=== PATIENT | female | born 1960 | race Caucasian/White ===

== ENCOUNTER 2016-10-08 15:10 | Emergency (ER) | payer OTHER | END 2016-10-08 16:40 | disposition left against medical advice (07) | DX: R07.89 Other chest pain (principal); Z53.21 Procedure and treatment not carried out due to patient leaving prior to being seen by health care provider ==

== ENCOUNTER 2017-04-06 17:33 | Emergency (ER) | payer OTHER ==
[2017-04-06 18:15] LABS: BASOPHILS # (AUTO) 0.2 10^3/uL (0.0-0.1); BASOPHILS % (AUTO) 1.9 %; EOSINOPHILS # (AUTO) 0.1 10^3/uL (0.0-0.7); EOSINOPHILS % (AUTO) 1.7 %; HCT - HEMATOCRIT 41.5 % (37.0-47.0); HGB - HEMOGLOBIN 14.3 g/dL (12.0-16.0); LYMPHOCYTES % (AUTO) 38.3 %; MEAN CORPUSCULAR HEMOGLOBIN 31.3 pg (27.0-31.0); MEAN CORPUSCULAR HGB CONC 34.4 g/dL (32.0-36.0); MEAN CORPUSCULAR VOLUME 90.8 fL (81.0-99.0); MEAN PLATELET VOLUME 8.8 fL (7.9-10.8); MONOCYTES % (AUTO) 12.7 %; NEUTROPHILS # (AUTO) 3.6 10^3/uL (1.5-6.6); NEUTROPHILS % (AUTO) 45.4 %; RED BLOOD COUNT 4.57 10^6/uL (4.20-5.40); RED CELL DISTRIBUTION WIDTH 12.9 % (12.0-15.0); UNCORRECTED WHITE BLOOD COUNT 7.9 x10^3/uL; WHITE BLOOD COUNT 7.9 x10^3/uL (4.8-10.8)
[2017-04-06 18:36] LABS: ALBUMIN/GLOBULIN RATIO 1.4 (1.0-2.2); BILIRUBIN,TOTAL 0.6 mg/dL (0.2-1.0); CALCIUM 8.9 mg/dL (8.5-10.3); CREATININE 0.6 mg/dL (0.4-1.0); POTASSIUM 3.2 mmol/L (3.5-5.0); TOTAL PROTEIN 7.3 g/dL (6.7-8.2)
--- NOTE | 2017-04-06 18:38 | ED Physician Documentation ---
PD HPI CHEST PAIN - Stated complaint Stated Complaint: SOA/CP - Chief complaint Chief Complaint: Cardiac - History obtained from History obtained from: Patient - History of Present Illness Timing - onset: How many hours ago (several), Today Timing - onset during: Rest Timing - duration: Hours Timing - details: Abrupt onset, Still present, Waxing and waning Quality: Tightness, Aching Location: Substernal Radiation: Neck Improved by: No: Rest, Nitro Worsened by: No: Exertion, Inspiration, Movement, Palpation Associated symptoms: Shortness of air. No: Diaphoresis, Nausea, Vomiting, Feeling faint / dizzy, Palpitations, Cough Similar symptoms before: No diagnosis (has had similar episodes several times. Has seen PMD and given NTG PRN pending workup. She has stress nuclear test yesterday and will see Cardio for result this coming week. Also getting ECHO this coming Saturday. The NTG earlier did not help.) Recently seen: Clinic (2 days ago with nuclear stress test and will have ECHO this coming Saturday as evaluation of the episodic chest pain episodes.) Review of Systems Ten Systems: 10 systems reviewed and negative Constitutional: denies: Fever, Chills Nose: denies: Rhinorrhea / runny nose, Congestion Throat: denies: Sore throat Cardiac: reports: Chest pain / pressure. denies: Palpitations, Pedal edema, Calf pain Respiratory: reports: Dyspnea. denies: Cough, Wheezing GI: denies: Nausea, Vomiting, Diarrhea : denies: Dysuria, Frequency Skin: denies: Rash, Lesions Musculoskeletal: denies: Neck pain, Back pain Neurologic: denies: Generalized weakness, Focal weakness, Numbness, Near syncope Psychiatric: reports: Anxiety. 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 - Present Medications Home Medications: Ambulatory Orders Medication Instructions Recorded Confirmed Atorvastatin Calcium 80 mg PO DAILY 10/08/16 04/06/17 Escitalopram Oxalate 20 mg PO DAILY 10/08/16 04/06/17 Exenatide [Byetta] 10 mg SQ BID 10/08/16 04/06/17 Insulin Glargine,Hum.rec.anlog 5 units SQ DAILY PM 10/08/16 04/06/17 [Basaglar Kwikpen U-100] Levothyroxine Sodium 50 mcg PO DAILY 10/08/16 04/06/17 Metformin HCl 1,000 mg PO BID 10/08/16 04/06/17 Trazodone HCl 150 mg PO DAILY 10/08/16 04/06/17 - Allergies Allergies/Adverse Reactions: Allergies Allergy/AdvReac Type Severity Reaction Status Date / Time gabapentin Allergy Unknown Verified 04/06/17 17:49 naproxen Allergy Unknown Verified 04/06/17 17:49 oxycodone Allergy Unknown Verified 04/06/17 17:49 Sulfa (Sulfonamide Allergy Unknown Verified 04/06/17 17:49 Antibiotics) - Social History Does the pt smoke?: No Smoking Status: Never smoker Does the pt drink ETOH?: Yes - Immunizations Immunizations are current?: Yes PD ED PE NORMAL - Vitals Vital signs reviewed: Yes - General General: Alert and oriented X 3, No acute distress, Well developed/nourished - HEENT HEENT: Ears normal, Moist mucous membranes, Pharynx benign - Neck Neck: Supple, no meningeal sign, No adenopathy - Cardiac Cardiac: RRR, No murmur - Respiratory Respiratory: No respiratory distress, Clear bilaterally - Abdomen Abdomen: Soft, Non tender - Back Back: No CVA TTP - Derm Derm: Normal color, Warm and dry - Extremities Extremities: No tenderness to palpate, Normal ROM s pain, No edema, No calf tenderness / cord - Neuro Neuro: Alert and oriented X 3, 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 No: ST elevation c/w ischemia, ST depression - Labs Labs: Laboratory Tests 04/06/17 04/06/17 04/06/17 17:55 18:11 18:19 WBC 7.9 RBC 4.57 Hgb 14.3 Hct 41.5 MCV 90.8 MCH 31.3 H MCHC 34.4 RDW 12.9 Plt Count 218 MPV 8.8 Neut # 3.6 Lymph # 3.0 [place] # 1.0 Eos # 0.1 Baso # 0.2 H Absolute Nucleated RBC 0.00 Nucleated RBC % 0.0 Sodium 132 L Potassium 3.2 L Chloride 99 L Carbon Dioxide 15 L Anion Gap 18.0 H BUN 10 Creatinine 0.6 Estimated GFR (MDRD) 104 Glucose 441 H POC Whole Bld Glucose 443 H Calcium 8.9 Total Bilirubin 0.6 AST 33 ALT 58 Alkaline Phosphatase 112 Troponin I Total Protein 7.3 Albumin 4.2 Globulin 3.1 Albumin/Globulin Ratio 1.4 Lipase 43 04/06/17 19:14 WBC RBC Hgb Hct MCV MCH MCHC RDW Plt Count MPV Neut # Lymph # [place] # Eos # Baso # Absolute Nucleated RBC Nucleated RBC % Sodium Potassium Chloride Carbon Dioxide Anion Gap BUN Creatinine Estimated GFR (MDRD) Glucose POC Whole Bld Glucose Calcium Total Bilirubin AST ALT Alkaline Phosphatase Troponin I < 0.04 Total Protein Albumin Globulin Albumin/Globulin Ratio Lipase - Rads (name of study) chest Radiology: Prelim report reviewed, EMP read contemporaneously (normal chest xray ) PD MEDICAL DECISION MAKING - ED course Complexity details: reviewed results, re-evaluated patient (no change with GI cocktail. negative ECG and Trop after hours of pain, with similar self-limited episodes recent past. Getting Cardiac workup, with nuclear stress yesterday but no results as yet. ), considered differential, d/w patient Departure - Departure Disposition: 01 Home, Self Care Clinical Impression: Chest pain Qualifiers: Chest pain type: precordial pain Qualified Code(s): R07.2 - Precordial pain Migraine Qualifiers: Migraine type: without aura Status migrainosus presence: without status migrainosus Intractability: not intractable Qualified Code(s): G43.009 - Migraine without aura, not intractable, without status migrainosus Condition: Stable Record reviewed to determine appropriate education?: Yes Instructions: ED Chest Pain Atypical Unkn Cause Comments: Tylenol or ibuprofen if needed for the pains when they occur. Follow-up with the truck driver's offsider regarding the stress test results this coming week and also have the echocardiogram this coming Saturday as planned. Return if more consistent pains or other concerns. Drink lots of fluids. There is not any sign of heart attack or obvious heart failure or fluid in the lungs or such at this time. Discharge Date/Time: 04/06/17 21:02
[2017-04-06] MEDS ORDERED: MAG HYDROX/AL HYDROX/SIMETH 30 ML UDC PO STA (19:03)
[2017-04-06] MEDS ORDERED: LIDOCAINE VISCOUS 2% 15 ML UDC MM STA (19:03)
[2017-04-06] MEDS ORDERED: MAG HYDROX/AL HYDROX/SIMETH 30 ML UDC ONE (19:18)
[2017-04-06] MEDS ORDERED: LIDOCAINE VISCOUS 2% 15 ML UDC MM ONE (19:18)
--- NOTE | 2017-04-06 20:27 | XRAY Preliminary Report ---
Exam: XR CHEST 2 VIEW PA/LAT IMPRESSION: Normal 2-view chest radiography. [facility] SITE ID: [id number]
--- NOTE | 2017-04-06 20:30 | XRAY Report ---
EXAM: CHEST RADIOGRAPHY EXAM DATE: 04/06/2017 08:23 PM. CLINICAL HISTORY: Chest pain today. COMPARISON: None. TECHNIQUE: 2 views. FINDINGS: Lungs/Pleura: No focal opacities evident. No pleural effusion. No pneumothorax. Normal volumes. Mediastinum: Heart and mediastinal contours are unremarkable. Other: None. IMPRESSION: Normal 2-view chest radiography. [facility] Referring Provider Line: [phone] SITE ID: [id number]
[2017-04-06] MEDS ORDERED: KETOROLAC 60 MG/2 ML VIAL IVP STA (20:32)
[2017-04-06] MEDS ORDERED: METOCLOPRAMIDE 10 MG/2 ML VIAL IVP STA (20:32)
[2017-04-06] MEDS ORDERED: HYDROmorphone 0.5 MG/0.5 ML SYRINGE IVP STA (20:33)
[2017-04-06] MEDS ORDERED: METOCLOPRAMIDE 10 MG/2 ML VIAL ONE (20:45)
[2017-04-06] MEDS ORDERED: KETOROLAC 30 MG/ML VIAL ONE (20:46)
[2017-04-06] MEDS ORDERED: SODIUM CHLORIDE FLUSH 0.9% 10 ML SYRINGE IVP ONE (20:46)
[2017-04-06] MEDS ORDERED: HYDROmorphone 1 MG/ML SYRINGE ONE (20:46)
[2017-04-06 21:02] VITALS: BP 121/63
== END 2017-04-06 21:02 | disposition home or self-care (01) ==
LOC: ED 17:33
DX: R07.2 Precordial pain (principal); G43.009 Migraine without aura, not intractable, without status migrainosus; I10 Essential (primary) hypertension; E78.00 Pure hypercholesterolemia, unspecified
CPT/HCPCS: 36415; 71020; 80053; 83690; 84484; 85025; 93005; 96374; 96375; 99284; A9270; J1170

== ENCOUNTER 2017-05-18 23:15 | Outpatient (CLI) | payer OTHER | END 2017-05-18 23:16 | disposition critical access hospital (66) | LOC: EMS 23:15 | PROVIDERS: ATTEND Surgery | DX: R11.2 Nausea with vomiting, unspecified (principal) | CPT/HCPCS: A0425; A0427 ==

== ENCOUNTER 2017-05-18 23:26 | Emergency (ER) | payer OTHER ==
--- NOTE | 2017-05-19 00:16 | ED Physician Documentation ---
PD HPI NVD - Stated complaint Stated Complaint: N/V/D - Chief complaint Chief Complaint: Abd Pain - History obtained from History obtained from: Patient, EMS - History of Present Illness Timing - onset: How many weeks ago (1) Timing - duration: Weeks (1) Timing - details: Gradual onset, Still present (she had onset of nausea and vomiting with some diarrhea a week ago. Seen in [facility] ER and given IV fluids and antiemetics. Dx with "stomach virus", and she says she had labs and CT scan that were normal. We can try to track down these results to verify. Since then, though, she has continued with nausea and vomiting, and felt worse tonight after drinking larger amount alcohol. Had not vomiting for several hours but still nauseated. Last diarrhea was earlier in the day. No noted blood in vomit nor stool.) Associated symptoms: Abdominal pain (intermittent cramping mid to upper abd pain for the past week, worse the past 1-2 days.), Loss of appetite. No: Fever , Hematemesis, Melena, Near syncope / syncope, Weight loss Contributing factors: No: Sick contact, Bad food, Travel, Recent antibiotics Improved by: Vomiting. No: Eating Worsened by: Eating, Palpation Similar symptoms before: Has not had sx before Recently seen: Emergency Dept (5 days ago at [facility], with IV fluids/meds and had labs and CT abd per patient.) Review of Systems Constitutional: reports: Myalgias, Fatigue. denies: Fever, Chills Nose: denies: Rhinorrhea / runny nose, Congestion Throat: denies: Sore throat Cardiac: denies: Chest pain / pressure, Palpitations Respiratory: denies: Dyspnea, Cough GI: reports: Abdominal Pain, Nausea, Vomiting, Diarrhea. denies: Abdominal Swelling, Hematemesis, Bloody / black stool : denies: Dysuria, Frequency Skin: denies: Rash, Lesions Musculoskeletal: denies: Neck pain, Back pain Neurologic: reports: Generalized weakness. 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 - Present Medications Home Medications: Ambulatory Orders Medication Instructions Recorded Confirmed Atorvastatin Calcium 80 mg PO DAILY 10/08/16 05/18/17 Escitalopram Oxalate 20 mg PO DAILY 10/08/16 05/18/17 Exenatide [Byetta] 10 mg SQ BID 10/08/16 05/18/17 Insulin Glargine,Hum.rec.anlog 5 units SQ DAILY PM 10/08/16 05/18/17 [Basaglar Kwikpen U-100] Levothyroxine Sodium 50 mcg PO DAILY 10/08/16 05/18/17 Metformin HCl 1,000 mg PO BID 10/08/16 05/18/17 Trazodone HCl 150 mg PO DAILY 10/08/16 05/18/17 Famotidine [Pepcid] 20 mg PO BID #30 tablet 05/19/17 HYDROcod/ACETAM 5/325 [[place] 5/325] 1 tab PO Q6H PRN #15 tablet 05/19/17 Ondansetron Odt [Zofran] 4 mg TL Q6H PRN #15 tablet 05/19/17 - Allergies Allergies/Adverse Reactions: Allergies Allergy/AdvReac Type Severity Reaction Status Date / Time gabapentin Allergy Unknown Verified 05/18/17 23:43 naproxen Allergy Unknown Verified 05/18/17 23:43 oxycodone Allergy Unknown Verified 05/18/17 23:43 Sulfa (Sulfonamide Allergy Unknown Verified 05/18/17 23:43 Antibiotics) - Living Situation Living Situation: reports: With spouse/s.o. Living Arrangement: reports: At home - Social History Does the pt smoke?: No Smoking Status: Never smoker Does the pt drink ETOH?: Yes ETOH Use: Other (intermittently, denies regular nor daily use. ) Does the pt have substance abuse?: Yes Substance Use and Type: Marijuana - Family History Family history: reports: CAD - Immunizations Immunizations are current?: Yes PD ED PE NORMAL - Vitals Vital signs reviewed: Yes - General General: Alert and oriented X 3, Well developed/nourished, Other (appears uncomfortable with nausea and dry heaving. Not in pain per se. Rather anxious with it as well. ) - HEENT HEENT: PERRL (nonicteric), Ears normal, Pharynx benign. No: Moist mucous membranes - Neck Neck: Supple, no meningeal sign, No adenopathy - Cardiac Cardiac: RRR, No murmur - Respiratory Respiratory: Clear bilaterally - Abdomen Abdomen: Soft, Non distended, No organomegaly, Other (tender in upper abd and epigastric area. No percussion nor rebound tenderness. ). No: Normal bowel sounds (decreased) - Female Female : Deferred - Rectal Rectal: Deferred - Back Back: No CVA TTP - Derm Derm: Normal color, Warm and dry - Neuro Neuro: Alert and oriented X 3, No motor deficit, Normal speech - Psych Psych: Normal mood. No: Normal affect (somewhat anxious and emotional) Results - Vitals Vitals: Vital Signs - 24 hr 05/19/17 05/19/17 05/19/17 02:43 02:57 04:37 Temperature Heart Rate 89 87 81 Respiratory 20 18 18 Rate Blood Pressure 126/74 126/74 130/60 O2 Saturation 98 84 L 93 05/19/17 05:44 Temperature 36.4 C L Heart Rate 86 Respiratory 18 Rate Blood Pressure 146/82 H O2 Saturation 90 L Oxygen O2 Source Room air - Labs Labs: Laboratory Tests 05/19/17 05/19/17 05/19/17 00:00 00:00 01:12 WBC 7.1 RBC 4.50 Hgb 14.3 Hct 40.1 MCV 89.1 MCH 31.8 H MCHC 35.7 RDW 13.1 Plt Count 202 MPV 8.6 Neut # 3.0 Lymph # 3.2 [place] # 0.6 Eos # 0.2 Baso # 0.0 Absolute Nucleated RBC 0.01 Nucleated RBC % 0.1 VBG pH 7.372 VBG pCO2 41.2 VBG pO2 59.8 H VBG HCO3 23.4 VBG Total CO2 24.7 VBG O2 Saturation 89.7 H VBG Base Excess -1.8 Sodium 132 L Potassium 2.4 L* Chloride 92 L Carbon Dioxide 23 Anion Gap 17.0 H BUN 7 Creatinine 0.6 Estimated GFR (MDRD) 104 Glucose 419 H Calcium 9.2 Total Bilirubin 0.5 AST 45 H ALT 71 H Alkaline Phosphatase 132 H Total Protein 7.4 Albumin 4.3 Globulin 3.1 Albumin/Globulin Ratio 1.4 Lipase 20 L Urine Color Urine Clarity Urine pH Ur Specific [place] Urine Protein Urine Glucose (UA) Urine Ketones Urine Occult Blood Urine Nitrite Urine Bilirubin Urine Urobilinogen Ur Leukocyte Esterase Ur Microscopic Review Urine Culture Comments Ethyl Alcohol 216.9 Serum Ketones NEGATIVE 05/19/17 01:50 WBC RBC Hgb Hct MCV MCH MCHC RDW Plt Count MPV Neut # Lymph # [place] # Eos # Baso # Absolute Nucleated RBC Nucleated RBC % VBG pH VBG pCO2 VBG pO2 VBG HCO3 VBG Total CO2 VBG O2 Saturation VBG Base Excess Sodium Potassium Chloride Carbon Dioxide Anion Gap BUN Creatinine Estimated GFR (MDRD) Glucose Calcium Total Bilirubin AST ALT Alkaline Phosphatase Total Protein Albumin Globulin Albumin/Globulin Ratio Lipase Urine Color YELLOW Urine Clarity CLEAR Urine pH 6.0 Ur Specific [place] 1.010 Urine Protein NEGATIVE Urine Glucose (UA) >=1000 H Urine Ketones NEGATIVE Urine Occult Blood NEGATIVE Urine Nitrite NEGATIVE Urine Bilirubin NEGATIVE Urine Urobilinogen 0.2 (NORMAL) Ur Leukocyte Esterase NEGATIVE Ur Microscopic Review NOT INDICATED Urine Culture Comments NOT INDICATED Ethyl Alcohol Serum Ketones - Rads (name of study) abd CT Radiology: Prelim report reviewed (esophagitis, no else acute. ), Final report received PD MEDICAL DECISION MAKING - ED course Complexity details: reviewed results, re-evaluated patient (Persistent nausea after several doses of various antiemetics. Benign abd exam still, but with the persistence of nausea/vomiting, got CT to ensure no obvious worse process such as SBO, volvulus, perf, etc. The CT showed possible esophagitis, else normal. She is finally improved enough with repeated doses meds, to feel minimally nuaseated and able to keep down sips of fluids. She is okay with discharge home. ), considered differential, d/w patient Departure - Departure Disposition: 01 Home, Self Care Clinical Impression: Hypokalemia Abdominal pain Qualifiers: Abdominal location: upper abdomen, unspecified Qualified Code(s): R10.10 - Upper abdominal pain, unspecified Vomiting Qualifiers: Vomiting type: bilious vomiting Nausea presence: with nausea Qualified Code(s) : R11.14 - Bilious vomiting Diarrhea Qualifiers: Diarrhea type: unspecified type Qualified Code(s): R19.7 - Diarrhea, unspecified Condition: Stable Record reviewed to determine appropriate education?: Yes Instructions: ED Abdominal Pain Unkn Cause, ED Nausea Vomiting Prescriptions: Famotidine [Pepcid] 20 mg PO BID #30 tablet HYDROcod/ACETAM 5/325 [[place] 5/325] 1 tab PO Q6H PRN #15 tablet PRN Reason: Pain Ondansetron Odt [Zofran] 4 mg TL Q6H PRN #15 tablet PRN Reason: Nausea / Vomiting Comments: Your CT scan showed some inflammation around the esophagus and stomach. This may relate to just the vomiting you have had or me be the reason for the ongoing nausea and pain. We will treated as gastritis with famotidine to reduce stomach acid, ondansetron for nausea, and Tylenol or hydrocodone for pain. However gastritis itself went typically give the diarrhea to and so the consideration would be for an intestinal infection as a possibility. If you have continued diarrhea, obtain a stool sample at home and bring it to your primary care for stool culture and studies to evaluate for that. Avoid stomach irritants such as anti-inflammatories, alcohol, spicy foods. Drink lots of water. Continue usual medications for diabetes. Follow-up with your primary care in 2-3 days for recheck, call for an appointment. Discharge Date/Time: 05/19/17 05:55
[2017-05-19] MEDS ORDERED: ONDANSETRON 4 MG/2 ML VIAL IVP STA (00:31)
[2017-05-19] MEDS ORDERED: SODIUM CHLORIDE 0.9% 1,000 ML IV ONE ×2 (00:31→03:23)
[2017-05-19] MEDS ORDERED: HYDROmorphone 1 MG/ML SYRINGE IVP STA ×4 (00:31→04:42)
[2017-05-19] MEDS ORDERED: FAMOTIDINE 20 MG/50 ML 50 ML IV ONE ×2 (00:32→00:42)
[2017-05-19] MEDS ORDERED: HYDROmorphone 1 MG/ML SYRINGE ONE ×4 (00:41→04:57)
[2017-05-19] MEDS ORDERED: ONDANSETRON 4 MG/2 ML VIAL ONE (00:41)
[2017-05-19 01:11] LABS: BASOPHILS % (AUTO) 0.6 %; EOSINOPHILS # (AUTO) 0.2 10^3/uL (0.0-0.7); EOSINOPHILS % (AUTO) 2.6 %; HCT - HEMATOCRIT 40.1 % (37.0-47.0); HGB - HEMOGLOBIN 14.3 g/dL (12.0-16.0); LYMPHOCYTES # (AUTO) 3.2 10^3/uL (1.5-3.5); LYMPHOCYTES % (AUTO) 44.9 %; MEAN CORPUSCULAR HEMOGLOBIN 31.8 pg (27.0-31.0); MEAN CORPUSCULAR HGB CONC 35.7 g/dL (32.0-36.0); MEAN CORPUSCULAR VOLUME 89.1 fL (81.0-99.0); MEAN PLATELET VOLUME 8.6 fL (7.9-10.8); MONOCYTES # (AUTO) 0.6 10^3/uL (0.0-1.0); MONOCYTES % (AUTO) 8.8 %; NEUTROPHILS % (AUTO) 43.1 %; NUCLEATED RED BLOOD CELLS AUTO 0.1 /100WBC; RED CELL DISTRIBUTION WIDTH 13.1 % (12.0-15.0); UNCORRECTED WHITE BLOOD COUNT 7.1 x10^3/uL; WHITE BLOOD COUNT 7.1 x10^3/uL (4.8-10.8)
[2017-05-19 01:21] LABS: ALBUMIN/GLOBULIN RATIO 1.4 (1.0-2.2); BILIRUBIN,TOTAL 0.5 mg/dL (0.2-1.0); BUN - BLOOD UREA NITROGEN 7 mg/dL (6-20); CALCIUM 9.2 mg/dL (8.5-10.3); CARBON DIOXIDE - CO2 23 mmol/L (21-32); CHLORIDE 92 mmol/L (101-111); CREATININE 0.6 mg/dL (0.4-1.0); GFR - MDRD 104 (>89); GLUCOSE 419 mg/dL (70-100); LIPASE 20 U/L (22-51); SODIUM 132 mmol/L (135-145); TOTAL PROTEIN 7.4 g/dL (6.7-8.2)
[2017-05-19 01:23] LABS: VBG BASE EXCESS -1.8 mmol/L (-2 - +2); VBG OXYGEN SATURATION 89.7 % (60-80); VBG PH 7.372 (7.31-7.41); VBG TOTAL CO2 24.7 mmol/L (24-29)
[2017-05-19 01:24] LABS: POTASSIUM 2.4 mmol/L (3.5-5.0)
[2017-05-19] MEDS ORDERED: POTASSIUM CHLOR 10 MEQ/100 ML 10 MEQ/100 ML BAG IV ONE ×2 (01:44→01:55)
[2017-05-19 02:15] LABS: BILIRUBIN,URINE NEGATIVE (NEGATIVE)
[2017-05-19 02:21] LABS: UA CHARGE (STRIP ONLY) YES; UR CULTURE IF IND NOT INDICATED
[2017-05-19] MEDS ORDERED: INSULIN REGULAR HUMAN 100 UNIT/1 ML 10 ML MDV IVP STA (03:23)
[2017-05-19] MEDS ORDERED: INSULIN REGULAR HUMAN 100 UNIT/1 ML 10 ML MDV ONE (03:37)
[2017-05-19] MEDS ORDERED: IOPAMIDOL-300 100 ML VIAL ONE (04:02)
[2017-05-19] MEDS ORDERED: IOPAMIDOL-300 100 ML VIAL IVP ONE (04:18)
[2017-05-19] MEDS ORDERED: MAG HYDROX/AL HYDROX/SIMETH 30 ML UDC PO STA (04:42)
[2017-05-19] MEDS ORDERED: LIDOCAINE VISCOUS 2% 15 ML UDC MM STA (04:42)
--- NOTE | 2017-05-19 04:53 | CT Preliminary Report ---
Exam: CT ABDOMEN/PELVIS W/ IMPRESSION: 1. Questionable distal esophagitis. No other acute inflammatory or obstructive process seen in the ab domen or pelvis. 2. Fatty liver. 3. Previous cholecystectomy. [facility] SITE ID: [id number]
--- NOTE | 2017-05-19 04:56 | CT Report ---
EXAM: CT ABDOMEN AND PELVIS EXAM DATE: 05/19/2017 04:31 AM. CLINICAL HISTORY: Upper abd pain, vomiting. COMPARISONS: None. TECHNIQUE: Routine helical CT imaging was performed through the abdomen and pelvis. IV contrast: Yes . Enteric contrast: No . Reconstructions: Coronal and sagittal. In accordance with CT protocol optimization, one or more of the following dose reduction techniques w ere utilized for this exam: automated exposure control, adjustment of mA and/or KV based on patient s ize, or use of iterative reconstructive technique. FINDINGS: Lung Bases: Questionable distal esophageal wall thickening. Liver: Fatty. No suspicious masses. Gallbladder/Bile Ducts: Unremarkable post cholecystectomy. Spleen: Unremarkable. Pancreas: Unremarkable. Adrenal Glands: Unremarkable. Kidneys: Unremarkable. No suspicious masses or hydronephrosis. Peritoneal Cavity/Bowel: No bowel obstruction or inflammatory process seen. No free air or significan t free fluid. No masses or adenopathy. The appendix appears to have been removed. No excessive stool burden. Pelvic Organs: Bladder, uterus, and adnexa appear unremarkable. Vasculature: No aneurysms or other significant abnormality. Bones: No significant abnormality. Other: None. IMPRESSION: 1. Questionable distal esophagitis. No other acute inflammatory or obstructive process seen in the ab domen or pelvis. 2. Fatty liver. 3. Previous cholecystectomy. [facility] Referring Provider Line: [phone] SITE ID: [id number]
[2017-05-19] MEDS ORDERED: LIDOCAINE VISCOUS 2% 15 ML UDC MM ONE (04:57)
[2017-05-19] MEDS ORDERED: MAG HYDROX/AL HYDROX/SIMETH 30 ML UDC ONE (04:57)
[2017-05-19 05:45] VITALS: BP 146/82
== END 2017-05-19 05:55 | disposition home or self-care (01) ==
LOC: EDUNIT# → ED 23:26
DX: E87.6 Hypokalemia (principal); R10.84 Generalized abdominal pain; R11.2 Nausea with vomiting, unspecified; R19.7 Diarrhea, unspecified; I10 Essential (primary) hypertension; E78.00 Pure hypercholesterolemia, unspecified; E11.9 Type 2 diabetes mellitus without complications; Z79.4 Long term (current) use of insulin
CPT/HCPCS: 36415; 74177; 80053; 80320; 81003; 82009; 82803; 83690; 85025; 96361; 96365; 96366; 96375; 96376; 99283; 99284; A9270; J1170; J1815; Q9967; 81001; 87086

== ENCOUNTER 2017-11-21 21:36 | Outpatient (CLI) | payer OTHER | END 2017-11-21 21:37 | disposition short-term general hospital (02) | LOC: EMS 21:36 | PROVIDERS: ATTEND Surgery | DX: I46.9 Cardiac arrest, cause unspecified (principal) | CPT/HCPCS: A0425; A0433 ==

== ENCOUNTER 2018-05-05 11:31 | Outpatient (CLI) | payer OTHER | END 2018-05-05 11:32 | disposition critical access hospital (66) | LOC: EMS 11:31 | PROVIDERS: ATTEND Surgery | DX: R20.2 Paresthesia of skin (principal); R61 Generalized hyperhidrosis; R47.9 Unspecified speech disturbances | CPT/HCPCS: A0425; A0429 ==

== ENCOUNTER 2018-05-05 11:46 | Emergency (ER) | payer OTHER ==
--- NOTE | 2018-05-05 12:07 | ED Physician Documentation ---
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 Eleva weak and shaky so checked sugar and was 60s, which is low for her. She got up to get some food, and noted feeling weak and some numbness in fingers. She says she got anxious and then short of breath. She developed numbness in hands/fingers and around the mouth, and also spasms of hands and face. No focal weakness. Tried to have candy bar. Called EMS. They gound BS in 70s and she was hyperventilating. Gave glucose and she improved her feeling of weakness. Breathing slowed and her spasms improved. She had been sick overnight with few episodes of vomiting and diarrhea, so had not eaten as yet this morning due to nausea. Did have her usual insulin.) Timing - duration: Minutes Timing - details: Abrupt onset Inciting event(s): No: Out of meds, URI Improved by: Other (glucose and controlled breathing) Associated symptoms: No: Fever, Cough, Wheezing, Chest pain / discomfort Similar symptoms before: Diagnosis (gets shaky with low blood sugars. Not had the finger/hand spasms in the past.) Recently seen: Not recently seen Review of Systems Constitutional: denies: Fever, Chills Nose: denies: Rhinorrhea / runny nose, Congestion Throat: denies: Sore throat Respiratory: denies: Cough GI: reports: Nausea, Vomiting (couple of times overnight and has some nausea still this morning.), Diarrhea (few times overnight.) Neurologic: reports: Generalized weakness. denies: Focal weakness, Difficulty speaking, Altered mental status, Headache PD PAST MEDICAL HISTORY - Past Medical History Cardiovascular: Hypertension, High cholesterol, Arrhythmia (had defibrillatable cardiac arrest in the past, post surgery and had cardiac workup without ischemic heart disease. Has pacer/AICD in. 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 Cardiovascular: Pacemaker, AICD - Present Medications Home Medications: Ambulatory Orders Medication Instructions Recorded Confirmed Atorvastatin Calcium 80 mg PO DAILY 10/08/16 05/18/17 Escitalopram Oxalate 20 mg PO DAILY 10/08/16 05/18/17 Exenatide [Byetta] 10 mg SQ BID 10/08/16 05/18/17 Insulin Glargine,Hum.rec.anlog 5 units SQ DAILY PM 10/08/16 05/18/17 [Basaglar [place] U-100] Levothyroxine Sodium 50 mcg PO DAILY 10/08/16 05/18/17 Metformin HCl 1,000 mg PO BID 10/08/16 05/18/17 Trazodone HCl 150 mg PO DAILY 10/08/16 05/18/17 Famotidine [Pepcid] 20 mg PO BID #30 tablet 05/19/17 HYDROcod/ACETAM 5/325 [[place] 5/325] 1 tab PO Q6H PRN #15 tablet 05/19/17 Ondansetron Odt [Zofran] 4 mg TL Q6H PRN #15 tablet 05/19/17 Ondansetron Odt [Zofran] 4 mg TL Q6H PRN #10 tablet 05/05/18 - Allergies Allergies/Adverse Reactions: Allergies Allergy/AdvReac Type Severity Reaction Status Date / Time gabapentin Allergy Unknown Verified 05/05/18 12:08 naproxen Allergy Unknown Verified 05/05/18 12:08 oxycodone Allergy Unknown Verified 05/05/18 12:08 Sulfa (Sulfonamide Allergy Unknown Verified 05/05/18 12:08 Antibiotics) - Social History Does the pt smoke?: No Smoking Status: Never smoker Does the pt drink ETOH?: Yes Does the pt have substance abuse?: Yes - Immunizations Immunizations are current?: Yes PD ED PE NORMAL - Vitals Vital signs reviewed: Yes - General General: Alert and oriented X 3, No acute distress, Well developed/nourished - HEENT HEENT: Pharynx benign - Neck Neck: Supple, no meningeal sign, No adenopathy - Cardiac Cardiac: RRR, No murmur - Respiratory Respiratory: Clear bilaterally - Abdomen Abdomen: Soft, Non tender - Back Back: No CVA TTP - Derm Derm: Normal color, Warm and dry - Extremities Extremities: No tenderness to palpate, Normal ROM s pain, No edema, No calf tenderness / cord - Neuro Neuro: Alert and oriented X 3, analyst programmer 2-12 intact, No motor deficit, No sensory deficit, Normal speech Eye Opening: Spontaneous Motor: Obeys Commands Verbal: Oriented GCS Score: 15 - Psych Psych: Normal mood. No: Normal affect (somewhat anxious still. ) Results - Vitals Vitals: Vital Signs - 24 hr 05/05/18 05/05/18 05/05/18 11:50 13:49 15:51 Temperature 36.5 C Heart Rate 72 69 74 Respiratory 18 16 16 Rate Blood Pressure 123/67 118/67 103/59 L O2 Saturation 97 98 96 Oxygen O2 Source Room air - EKG (time done) 12:06 Rate: Rate (enter#) (70) Rhythm: NSR [place]: Normal Intervals: Normal HI QRS: Normal Ischemia: Normal ST segments. No: ST elevation c/w ischemia, ST depression - Labs Labs: Laboratory Tests 05/05/18 05/05/18 05/05/18 12:27 12:29 12:44 WBC 10.4 RBC 4.00 L Hgb 13.0 Hct 36.3 L MCV 90.7 MCH 32.5 H MCHC 35.9 RDW 16.3 H Plt Count 234 MPV 7.9 Neut # (Auto) 7.5 H Lymph # (Auto) 1.7 [place] # (Auto) 1.0 Eos # (Auto) 0.1 Baso # (Auto) 0.1 Absolute Nucleated RBC 0.01 Nucleated RBC % 0.1 Sodium Potassium Chloride Carbon Dioxide Anion Gap BUN Creatinine Estimated GFR (MDRD) Glucose POC Whole Bld Glucose 57 L* 89 Calcium Magnesium Total Bilirubin AST ALT Alkaline Phosphatase Troponin I Total Protein Albumin Globulin Albumin/Globulin Ratio Lipase 05/05/18 05/05/18 05/05/18 12:44 12:44 15:56 WBC RBC Hgb Hct MCV MCH MCHC RDW Plt Count MPV Neut # (Auto) Lymph # (Auto) [place] # (Auto) Eos # (Auto) Baso # (Auto) Absolute Nucleated RBC Nucleated RBC % Sodium 133 L Potassium 2.2 L* Chloride 83 L Carbon Dioxide 33 H Anion Gap 17.0 H BUN 30 H Creatinine 1.2 H Estimated GFR (MDRD) 46 L Glucose 80 POC Whole Bld Glucose 106 H Calcium 9.0 Magnesium 1.4 L Total Bilirubin 1.0 AST 46 H ALT 40 Alkaline Phosphatase 98 Troponin I < 0.04 Total Protein 7.2 Albumin 4.3 Globulin 2.9 Albumin/Globulin Ratio 1.5 Lipase 21 L PD MEDICAL DECISION MAKING - ED course Complexity details: reviewed results (ECG is okay. She remains feeling okay here. Given food to eat right after arrival as she still had not eaten for the day. repeated FSBS remains good. K is very low and given supplements. ), considered differential (seems like hypoglycemia symptoms that triggered hyperventilation. Compunded by GE sounding symptoms overnight. The numbness and spasms would be augmented by the prior hypokalemia. She has had low K in past and is on supplement.), d/w patient Departure - Departure Disposition: Home, Self Care Clinical Impression: Hypoglycemia, Hypokalemia, Hyperventilation Diarrhea Qualifiers: Diarrhea type: presumed infectious Qualified Code(s): R19.7 - Diarrhea, unspecified Condition: Stable Record reviewed to determine appropriate education?: Yes Instructions: ED Hyperventilation Syndrome Prescriptions: Ondansetron Odt [Zofran] 4 mg TL Q6H PRN #10 tablet PRN Reason: Nausea / Vomiting Comments: It sounds like you have a mild viral stomach illness with your nausea and diarrhea. Presume this led to the low blood sugar episode and then subsequently the hyperventilation. There is no signs of more significant problems based on your EKG and blood tests. Your potassium is low and I would have you continue your potassium supplement at home and double the dose for the next for 5 days. You could hold your diuretic for a day or 2 while you are feeling ill. Continue other usual medications and use ondansetron if needed for nausea to maintain good oral intake. Recheck if not improving over the next day or 2. Discharge Date/Time: 05/05/18 16:00
[2018-05-05] MEDS ORDERED: ONDANSETRON 4 MG/2 ML VIAL IVP STA (12:28)
[2018-05-05] MEDS ORDERED: SODIUM CHLORIDE 0.9% 1,000 ML IV ONE (12:28)
[2018-05-05 12:52] LABS: BASOPHILS # (AUTO) 0.1 10^3/uL (0.0-0.1); BASOPHILS % (AUTO) 0.7 %; EOSINOPHILS # (AUTO) 0.1 10^3/uL (0.0-0.7); LYMPHOCYTES # (AUTO) 1.7 10^3/uL (1.5-3.5); LYMPHOCYTES % (AUTO) 16.3 %; MEAN CORPUSCULAR HEMOGLOBIN 32.5 pg (27.0-31.0); MEAN CORPUSCULAR HGB CONC 35.9 g/dL (32.0-36.0); MEAN CORPUSCULAR VOLUME 90.7 fL (81.0-99.0); MEAN PLATELET VOLUME 7.9 fL (7.9-10.8); MONOCYTES % (AUTO) 9.8 %; NEUTROPHILS # (AUTO) 7.5 10^3/uL (1.5-6.6); NEUTROPHILS % (AUTO) 72.2 %; PLT - PLATELET COUNT 234 10^3/uL (130-450); RED CELL DISTRIBUTION WIDTH 16.3 % (12.0-15.0); WHITE BLOOD COUNT 10.4 x10^3/uL (4.8-10.8)
[2018-05-05 13:22] LABS: ALBUMIN 4.3 g/dL (3.2-5.5); ALBUMIN/GLOBULIN RATIO 1.5 (1.0-2.2); CREATININE 1.2 mg/dL (0.4-1.0); MAGNESIUM 1.4 mg/dL (1.7-2.8); TOTAL PROTEIN 7.2 g/dL (6.7-8.2)
[2018-05-05] MEDS ORDERED: POTASSIUM BICARB 25 MEQ TABLET PO STA (13:28)
[2018-05-05] MEDS ORDERED: POTASSIUM CHLOR 10 MEQ/100 ML 10 MEQ/100 ML BAG IV ONE (13:28)
[2018-05-05 15:52] VITALS: BP 103/59
== END 2018-05-05 16:00 | disposition home or self-care (01) ==
LOC: EDUNIT# → ED 11:46
DX: E11.649 Type 2 diabetes mellitus with hypoglycemia without coma (principal); E87.6 Hypokalemia; R06.4 Hyperventilation; R19.7 Diarrhea, unspecified; I10 Essential (primary) hypertension; Z79.4 Long term (current) use of insulin; Z95.818 Presence of other cardiac implants and grafts
CPT/HCPCS: 36415; 80053; 83690; 83735; 84484; 85025; 93005; 96365; 96375; 99284; A9270

== ENCOUNTER 2018-07-18 19:14 | Observation (INO) | payer OTHER ==
[2018-07-18 19:39] LABS: BASOPHILS # (AUTO) 0.1 10^3/uL (0.0-0.1); BASOPHILS % (AUTO) 0.9 %; EOSINOPHILS # (AUTO) 0.2 10^3/uL (0.0-0.7); EOSINOPHILS % (AUTO) 1.8 %; HGB - HEMOGLOBIN 11.9 g/dL (12.0-16.0); LYMPHOCYTES # (AUTO) 3.2 10^3/uL (1.5-3.5); MEAN CORPUSCULAR HEMOGLOBIN 34.6 pg (27.0-31.0); MEAN CORPUSCULAR HGB CONC 36.8 g/dL (32.0-36.0); MONOCYTES # (AUTO) 0.8 10^3/uL (0.0-1.0); MONOCYTES % (AUTO) 6.6 %; NEUTROPHILS # (AUTO) 7.9 10^3/uL (1.5-6.6); NEUTROPHILS % (AUTO) 64.7 %; PLT - PLATELET COUNT 308 10^3/uL (130-450); RED BLOOD COUNT 3.43 10^6/uL (4.20-5.40); RED CELL DISTRIBUTION WIDTH 13.5 % (12.0-15.0); WHITE BLOOD COUNT 12.3 x10^3/uL (4.8-10.8)
[2018-07-18] MEDS ORDERED: POTASSIUM BICARB 25 MEQ TABLET PO STA ×2 (19:45→20:07)
[2018-07-18 19:55] LABS: ALBUMIN 4.4 g/dL (3.2-5.5); ALBUMIN/GLOBULIN RATIO 1.3 (1.0-2.2); BILIRUBIN,TOTAL 0.5 mg/dL (0.2-1.0); CALCIUM 9.6 mg/dL (8.5-10.3); CREATININE 1.2 mg/dL (0.4-1.0); TOTAL PROTEIN 7.8 g/dL (6.7-8.2)
[2018-07-18] MEDS ORDERED: SODIUM CHLORIDE 0.9% 1,000 ML IV ONE (20:55)
[2018-07-18] MEDS ORDERED: MAGNESIUM SULFATE 2 GRAM 2 GM/50 ML BAG IV ONE (20:55)
[2018-07-18] MEDS ORDERED: POTASSIUM CHLOR 10 MEQ/100 ML 10 MEQ/100 ML BAG IV STA (20:56)
--- NOTE | 2018-07-18 21:00 | ED Physician Documentation ---
History of Present Illness - Stated complaint Stated Complaint: LOW POTASSIUM - Chief complaint Chief Complaint: Cardiac - History obtained from History obtained from: Patient, Family - History of Present Illness Timing: Unknown Pain level max: 0 Pain level now: 0 - Additonal information Additional information: 58-year-old female presents to the emergency department after an outpatient lab draws showed a potassium of 2.4. 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 She states that her legs have been feeling weaker than usual lately and she was having some difficulty walking. States that they feel heavy. She has a history of a cardiac arrest in October 2017. Has an AICD and pacemaker in place. She sees Dr. Ball, cardiology at [facility]. She was on Lasix but stopped this a few weeks ago. Has had low potassium in the past but never had a workup to figure out why. No changes in her medications. No changes in her diet. Nothing makes it better or worse. Review of Systems Ten Systems: 10 systems reviewed and negative Constitutional: denies: Fever, Chills Ears: denies: Ear pain Nose: denies: Rhinorrhea / runny nose, Congestion Throat: denies: Sore throat Cardiac: denies: Chest pain / pressure Respiratory: denies: Cough GI: denies: Abdominal Pain, Nausea, Vomiting, Diarrhea Skin: denies: Rash Musculoskeletal: denies: Neck pain, Back pain Neurologic: denies: Focal weakness, Numbness, Headache PD PAST MEDICAL HISTORY - Past Medical History Past Medical History: Yes Cardiovascular: Hypertension, High cholesterol, Arrhythmia Endocrine/Autoimmune: Type 2 diabetes Psych: Depression, Anxiety Other Past Medical History: Cardiac arrest in 10/2017 - Past Surgical History Past Surgical History: Yes General: Cholecystectomy, 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 Cardiovascular: Pacemaker, AICD - Present Medications Home Medications: Ambulatory Orders Medication Instructions Recorded Confirmed Escitalopram Oxalate 20 mg PO DAILY 10/08/16 07/18/18 Exenatide [Byetta] 10 mg SQ BID 10/08/16 07/18/18 Insulin Glargine,Hum.rec.anlog 5 units SQ DAILY PM 10/08/16 07/18/18 [Basaglar Kwikpen U-100] Levothyroxine Sodium 50 mcg PO DAILY 10/08/16 07/18/18 Metformin HCl 1,000 mg PO BID 10/08/16 07/18/18 Trazodone HCl 150 mg PO DAILY 10/08/16 07/18/18 Metoprolol Tartrate 50 mg PO BID 07/18/18 07/18/18 - Allergies Allergies/Adverse Reactions: Allergies Allergy/AdvReac Type Severity Reaction Status Date / Time gabapentin Allergy Unknown Verified 07/18/18 19:23 naproxen Allergy Unknown Verified 07/18/18 19:23 oxycodone Allergy Unknown Verified 07/18/18 19:23 Sulfa (Sulfonamide Allergy Unknown Verified 07/18/18 19:23 Antibiotics) - Social History Does the pt smoke?: No Smoking Status: Never smoker Does the pt drink ETOH?: Yes Does the pt have substance abuse?: No Substance Use and Type: Marijuana - Immunizations Immunizations are current?: Yes - POLST Patient has POLST: No PD ED PE NORMAL - Vitals Vital signs reviewed: Yes - General General: Alert and oriented X 3, No acute distress, Well developed/nourished - HEENT HEENT: PERRL, Moist mucous membranes - Neck Neck: Supple, no meningeal sign - Cardiac Cardiac: RRR, Strong equal pulses - Respiratory Respiratory: No respiratory distress, Clear bilaterally - Abdomen Abdomen: Soft, Non tender, Non distended - Derm Derm: Warm and dry - Extremities Extremities: Other (1+ bilateral lower extremity edema) - Neuro Neuro: Alert and oriented X 3 - Psych Psych: Normal mood, Normal affect Results - Vitals Vitals: Vital Signs - 24 hr 07/18/18 07/18/18 19:16 20:26 Temperature 36.3 C L Heart Rate 86 76 Respiratory 16 17 Rate Blood Pressure 144/75 H 146/78 H O2 Saturation 96 100 Oxygen O2 Source Room air - EKG (time done) 1929 Rate: Rate (enter#) (77) Rhythm: NSR [place]: Normal Intervals: 1st degree AVB, Prolonged QT QRS: Normal Ischemia: Non specific changes - Labs Labs: Laboratory Tests 07/18/18 07/18/18 07/18/18 19:35 19:35 19:35 WBC 12.3 H RBC 3.43 L Hgb 11.9 L Hct 32.2 L MCV 94.0 MCH 34.6 H MCHC 36.8 H RDW 13.5 Plt Count 308 MPV 8.0 Neut # (Auto) 7.9 H Lymph # (Auto) 3.2 [place] # (Auto) 0.8 Eos # (Auto) 0.2 Baso # (Auto) 0.1 Absolute Nucleated RBC 0.01 Nucleated RBC % 0.1 Sodium 129 L Potassium 2.2 L* Chloride 83 L Carbon Dioxide 32 Anion Gap 14.0 H BUN 21 H Creatinine 1.2 H Estimated GFR (MDRD) 46 L Glucose 170 H Calcium 9.6 Phosphorus Magnesium Total Bilirubin 0.5 AST 42 ALT 49 Alkaline Phosphatase 120 Troponin I < 0.04 Total Protein 7.8 Albumin 4.4 Globulin 3.4 Albumin/Globulin Ratio 1.3 Lipase 66 H TSH Free T4 07/18/18 07/18/18 07/18/18 19:35 19:48 21:12 WBC RBC Hgb Hct MCV MCH MCHC RDW Plt Count MPV Neut # (Auto) Lymph # (Auto) [place] # (Auto) Eos # (Auto) Baso # (Auto) Absolute Nucleated RBC Nucleated RBC % Sodium Potassium Chloride Carbon Dioxide Anion Gap BUN Creatinine Estimated GFR (MDRD) Glucose Calcium Phosphorus 2.8 Magnesium 1.8 1.8 Total Bilirubin AST ALT Alkaline Phosphatase Troponin I Total Protein Albumin Globulin Albumin/Globulin Ratio Lipase TSH 4.29 Free T4 1.36 PD MEDICAL DECISION MAKING - ED course Complexity details: reviewed old records, reviewed results, re-evaluated patient, considered differential, d/w patient, d/w family, d/w financial analysis consultant ED course: 58-year-old female with a history of diabetes and congestive heart failure, presents to the emergency department with severe hypokalemia and weakness with walking. Has a prolonged QT on EKG. Given oral potassium and IV potassium. Also given magnesium as her magnesium is borderline low. Discussed with the hospitalist will place in observation for further evaluation. She stopped her Lasix several weeks ago, doubt this would be contributing to the etiology. This document was made in part using voice recognition software. While efforts are made to proofread this document, sound alike and grammatical errors may occur. Departure - Departure Disposition: ED Place in Observation Clinical Impression: Hypokalemia, Hyponatremia Condition: Stable Discharge Date/Time: 07/18/18 22:12
[2018-07-18] MEDS ORDERED: SODIUM CHLORIDE FLUSH 0.9% 10 ML SYRINGE IVP PRN (21:20)
[2018-07-18] MEDS ORDERED: PROCHLORPERAZINE 10 MG/2 ML VIAL IVP PRN (21:20)
[2018-07-18] MEDS ORDERED: ONDANSETRON 4 MG/2 ML VIAL IVP PRN (21:20)
[2018-07-18] MEDS ORDERED: TEMAZEPAM 15 MG CAPSULE PO PRN (21:20)
[2018-07-18] MEDS ORDERED: ACETAMINOPHEN 325 MG TABLET PO PRN (21:20)
[2018-07-18] MEDS ORDERED: ZOLPIDEM 5 MG TABLET PO PRN (21:20)
[2018-07-18 21:28] LABS: MAGNESIUM 1.8 mg/dL (1.7-2.8); PHOSPHORUS 2.8 mg/dL (2.5-4.6)
--- NOTE | 2018-07-18 21:34 | HISTORY & PHYSICAL EXAMINATION ---
Chief Complaint - Chief Complaint Chief Complaint: Low potassium History of Present Illness - Admitted From Admitted From:: Emergency department - History Obtained From Records Reviewed: Emergency department records History obtained from: Patient and Dr. Killian, ED physician Exam Limitations: None - History of Present Illness HPI Comment/Other: Patient is a 58-year-old female with a past medical history of type 2 diabetes, cardiac arrest in October 2017 with an internal defibrillator, hypertension, depression and hypokalemia. Her PCP was performing routine lab work when his lab potassium came back at 2.4. PCPs office called the patient to let her know her potassium is dangerously low and she needs to go to the emergency room. She was essentially feeling asymptomatic. She told the triage nurse that she had no symptoms. However, when she discussed things with the ED physician she did mention that she was having some pain and weakness in her legs bilaterally. Dr. Killian presented to me that the patient was having symptomatic hypokalemia and when they repeated the potassium level was down to 2.2. Although he did order replacement initially with 50 mEq orally and another 10 mEq by IV, he felt that she needed to be admitted for further evaluation of the hypokalemia and to ensure it is corrected prior to discharge. He also felt that the symptoms in her legs may be related to the potassium level.She does have a few chronic complaints which are covered in the review of systems but otherwise no new complaints or events related to the hypokalemia. She is not taking furosemide and she is not taking oral potassium. 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 Cardiovascular: reports: Pacemaker, AICD - Family & Social History Family History: Mother: CAD, CVA/TIA, Diabetes, Type 2, Father: CAD, Diabetes, Type 2, ND, Brother: ND Living arrangement: At home Living Situation: With spouse/s.o., With family - Substance History Use: Uses substance without health or social issues: Alcohol (Patient recently cut back on alcohol previously drinking a couple of shots a day now drinks about 3-4 drinks per day on the weekend only.), Cannabis - POLST Patient has POLST: No POLST Status: DNR Meds/Allgy - Home Medications Home Medications: Ambulatory Orders Medication Instructions Recorded Confirmed Escitalopram Oxalate 20 mg PO DAILY 10/08/16 07/18/18 Exenatide [Byetta] 10 mg SQ BID 10/08/16 07/18/18 Insulin Glargine,Hum.rec.anlog 5 units SQ DAILY PM 10/08/16 07/18/18 [Basaglar Kwikpen U-100] Levothyroxine Sodium 50 mcg PO DAILY 10/08/16 07/18/18 Metformin HCl 1,000 mg PO BID 10/08/16 07/18/18 Trazodone HCl 150 mg PO DAILY 10/08/16 07/18/18 - Allergies Allergies/Adverse Reactions: Allergies Allergy/AdvReac Type Severity Reaction Status Date / Time gabapentin Allergy Unknown Verified 07/18/18 19:23 naproxen Allergy Unknown Verified 07/18/18 19:23 oxycodone Allergy Unknown Verified 07/18/18 19:23 Sulfa (Sulfonamide Allergy Unknown Verified 07/18/18 19:23 Antibiotics) Review of Systems - Constitutional Constitutional: reports: Fatigue, Weakness - Cardiovascular Cariovascular: denies: Irregular heart rate, Palpitations, Chest pain, Lightheadedness, Syncope, Exertional dyspnea - Gastrointestinal Gastrointestinal: reports: Diarrhea (Patient complains of chronic diarrhea, This has been going on for years), Rectal bleeding (Patient has occasional bleeding with hemorrhoids, This has also been a chronic problem intermittently). denies: Abdominal pain - Musculoskeletal Musculoskeletal: reports: Muscle pain (Patient complains of bilateral leg pain worse with ambulation, improves with forward flexion of the lumbar spine at the hips) - Neurological Neurological: reports: Focal weakness (She complains of leg weakness which is worse with walking and improves with rest, It primarily involves the thighs more than the calves) - Psychiatric Psychiatric: reports: Depression, Anxiety Prior Level of Functionality: Independent Exam - Vital Signs Reviewed Vital Signs: Yes Vital Signs: Vital Signs x48h Temp Pulse Resp BP Pulse Ox 07/18/18 20:26 76 17 146/78 H 100 07/18/18 19:16 36.3 C L 86 16 144/75 H 96 - Physical Exam General Appearance: positive: No acute distress Eyes Bilateral: positive: Normal inspection ENT: positive: ENT inspection nml Neck: positive: Nml inspection, Thyroid nml Respiratory: positive: Chest non-tender, No respiratory distress, Breath sounds nml Cardiovascular: positive: Regular rate & rhythm, No murmur, No gallop Peripheral Pulses: positive: 2+ Abdomen: positive: Non-tender, No organomegaly, Nml bowel sounds Back: positive: Nml inspection Skin: positive: Color nml Extremities: positive: Nml appearance, No pedal edema Neurologic/Psychiatric: positive: Oriented x3, CN's nml (2-12), Motor nml, Sensation nml, Mood/affect nml Sepsis Event Note (H) - Evaluation Current Stage of Sepsis: Ruled out Conclusion/Plan - Problem List (1) Hypokalemia Conclusion/Plan: Etiology for the hypokalemia is not entirely clear at this point. It could be related to chronic diarrhea, I do not see any medications that would be obvious culprits since she is no longer taking her furosemide. She denies any renal disease history. There is no evidence of such on her labs today. I would like to get a urine potassium level and after replacing potassium with IV fluids and orals, we will recheck labs and follow accordingly.. (2) Depression Conclusion/Plan: The patient was quite adamant that she did not want to be resuscitated or intubated when I asked about CODE STATUS. This seems to be somewhat incongruent with her age and overall state of health, and her daughter, who was in the room, did not approve of this decision nor did her significant other. She even mentioned that she was mad at her significant other who is the one who saved her life by performing chest compressions when she had the cardiac arrest. She told me that she would have talked about it with me more if people were not in the room so we will try to [place] back and talk about this further. It may be worth having a social work consult. She is on antidepressants, but it is unclear if her treatment is being optimized. In the meantime, we will continue current medications and possibly recommend an increase in the dose of her citalopram at discharge. (3) Hyponatremia Conclusion/Plan: Possibly also hypovolemia secondary to diarrhea, will provide slow rehydration with normal saline. (4) Diarrhea Conclusion/Plan: Again, this is a chronic problem. This been going on for years but it may be related to the reason why she has chronic hyponatremia. Given her psych history, I do suspect irritable bowel syndrome and I did discuss this briefly with her however this will need to be more of an outpatient workup since she does not have any acute abdominal symptoms at this point. Qualifiers: Diarrhea type: presumed infectious Qualified Code(s): R19.7 - Diarrhea, unspecified (5) Type 2 diabetes mellitus Conclusion/Plan: Patient is taking metformin as well as Byetta, both of which can potentially cause diarrhea. I would encourage her to discuss with her PCP possible alternatives to see if this makes a difference. For now I will keep her on an insulin sliding scale and avoid oral diabetic medications. 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
[2018-07-18 21:54] LABS: THYROID STIMULATING HORMONE 4.29 uIU/mL (0.34-5.60)
[2018-07-18 21:56] LABS: FREE T4 (FREE THYROXINE) 1.36 ng/dL (0.58-1.64)
[2018-07-18] MEDS: NS W/20 MEQ KCL 1,000 ML IV SCH (23:13)
[2018-07-19] MEDS ORDERED: INSULIN GLARGINE 300 UNIT/3 ML PEN SUBQ SCH ×3 (00:09→21:00)
[2018-07-19] MEDS: SODIUM CHLORIDE FLUSH 0.9% 10 ML SYRINGE IVP SCH ×3 (00:30→17:40)
[2018-07-19 05:40] LABS: CALCIUM 9.1 mg/dL (8.5-10.3); CREATININE 0.9 mg/dL (0.4-1.0); MAGNESIUM 2.4 mg/dL (1.7-2.8)
[2018-07-19 05:50] LABS: HB2 TOTAL 10.1 g/dL; HEMOGLOBIN A1C 0.54 g/dL
[2018-07-19] MEDS ORDERED: LEVOTHYROXINE 25 MCG TABLET PO SCH (07:00)
[2018-07-19] MEDS ORDERED: PANTOPRAZOLE 40 MG TABLET PO SCH (07:00)
[2018-07-19] MEDS ORDERED: POTASSIUM CHLOR 10 MEQ/100 ML 10 MEQ/100 ML BAG IV ONE ×4 (07:18→10:00)
[2018-07-19 07:24] LABS: BILIRUBIN,URINE NEGATIVE (NEGATIVE); GLUCOSE, URINE (UA) NEGATIVE (NEGATIVE); KETONES,URINE (UA) NEGATIVE (NEGATIVE); LEUKOCYTE ESTERASE, URINE MODERATE (NEGATIVE); NITRITE,URINE NEGATIVE (NEGATIVE); OCCULT BLOOD,URINE NEGATIVE (NEGATIVE); PH,URINE 6.5 PH (5.0-7.5); PROTEIN,URINE NEGATIVE (NEGATIVE); UROBILINOGEN,URINE 0.2 (NORMAL) E.U./dL (NORMAL)
[2018-07-19 07:25] LABS: CLARITY,URINE HAZY (CLEAR)
[2018-07-19 07:36] LABS: BACTERIA,URINE Few /HPF (None Seen); RBC,URINE 0-5 /HPF (0-5); SQUAMOUS EPITHELIAL CELL,UR RARE Squamous (<= Few)
[2018-07-19] MEDS: INSULIN ASPART 300 UNIT/3 ML PEN SUBQ SCH ×3 (07:48→17:39)
[2018-07-19] MEDS ORDERED: SERTRALINE 50 MG TABLET PO SCH (09:00)
[2018-07-19] MEDS ORDERED: METOPROLOL TARTRATE 50 MG TABLET PO SCH (09:00)
[2018-07-19] MEDS ORDERED: traZODone 50 MG TABLET PO SCH ×2 (09:00→21:00)
[2018-07-19] MEDS ORDERED: ESCITALOPRAM 10 MG TABLET PO SCH (09:00)
[2018-07-19] MEDS ORDERED: POLYETHYLENE GLYCOL 3350 17 GM PACKET PO SCH (09:00)
[2018-07-19] MEDS: NS W/20 MEQ KCL 1,000 ML IV SCH (12:04)
[2018-07-19] MEDS ORDERED: POTASSIUM CITRATE 5 MEQ TABLET PO ONE (12:45)
--- NOTE | 2018-07-19 17:04 | Discharge Plan ---
Discharge Plan Disposition: Home, Self Care Condition: Good Prescriptions: RX: Nitrofurantoin [Macrobid] 100 mg PO BID #14 capsule RX: Potassium Citrate [Urocit-K] 20 meq PO BID #150 tablet Diet: Diabetic Activity Restrictions: Activity as Tolerated Shower Restrictions: No Driving Restrictions: No Instruction Topics: Nitrofurantoin tablets or capsules, Potassium Citrate Extended-Release Tablets Additional Instructions or Follow Up instructions: You were placed in observation in the hospital because your potassium was found to be 2.2. You had a low potassium in your primary care provider's office and he wanted you to be treated in the emergency room. Low potassium can lead to numbness and tingling of your muscles. It can also lead to cardiac arrest. You have a new prescription for potassium at home but really do not like to take the large tablets. You feel that they are hard to swallow, make you gag, and sometimes vomit. We experimented with different potassium solutions here in the hospital and the tablet you seem to like the most is potassium citrate, 5 mEq because is so small. We are sending you home with potassium citrate 5 mEq, 4 tablets twice a day for the next week. You can then go down to 4 tablets once a day. Please have your primary care provider, Keli Ayala, check your potassium in a week. There were no other changes to your medications. You did have a urinary tract infection and we are sending you home on Macrobid, 100 mg capsule twice a day for the next 7 days. No Smoking: If you smoke, Please STOP! Call for help. Follow-up with: KELI AYALA MD [Primary Care Provider] -
[2018-07-19] MEDS ORDERED: POTASSIUM CHLOR 10 MEQ/100 ML 10 MEQ/100 ML BAG IV SCH (18:00)
[2018-07-19 18:37] VITALS: BP 113/74
--- NOTE | 2018-07-28 11:14 | DISCHARGE SUMMARY ---
Physician: Chelsie Manzano MD DATE OF ADMISSION: 07/18/2018 DATE OF DISCHARGE: 07/19/2018 DISCHARGE DIAGNOSES 1. Hypokalemia. 2. Depression. 3. Hyponatremia. 4. Diarrhea. 5. Type 2 diabetes mellitus, controlled, without complications. 6. Hypothyroidism. 7. Leg pain with chronic pain syndrome. DISCHARGE MEDICATIONS 1. Glargine insulin 26 units subcutaneous q.p.m., and 25 units in the morning. 2. Levothyroxine 25 mcg daily. 3. Metformin 1000 mg b.i.d. 4. Methocarbamol 750 p.o. q.p.m. 5. Toprol-XL 50 mg p.o. b.i.d. 6. Sertraline 200 mg daily. 7. Trazodone 100 mg daily. NEW PRESCRIPTIONS 1. Macrobid 100 p.o. b.i.d. 2. Urocit 20 mEq p.o. b.i.d. PRINCIPAL PROCEDURES: Urine culture suggesting polymicrobial growth, but previous urinary tract infection with Escherichia coli. HOSPITAL COURSE: She is a 58-year-old female who has diabetes and gets diarrhea with metformin. She had cardiac arrest in 10/2017 with internal defibrillator, hypertension, depression and hypokalemia. She went to go see her PCP who performed routine blood work, and her potassium came back at 2.4. PCP called her to let her know her potassium was "dangerously low" and to come to the emergency room. The patient had no symptoms. No paresthesias, palpitations, weakness, or fatigue that was unusual. The only thing she discussed with the ED physician and us was she has pain and weakness in her legs bilaterally that is of longstanding duration. She may have spinal stenosis, and would need a workup for that. In the emergency room, repeat potassium was 2.2. She was given 50 mEq orally, another 10 mEq IV, and ER physician felt she need to be admitted for further evaluation of hypokalemia. The rest of her course was unremarkable. She had no arrhythmias on telemetry. She admittedly stated that she is noncompliant with her oral potassium that she is supposed to be taking at home. She says she probably has about 6 months' worth of oral potassium that her PCP has prescribed and she has not taken. This is because she has chronic hypokalemia. She does not like the type of pill that has been prescribed. With this admission, I had pharmacy bring all available forms of potassium supplements. She finally wanted Urocit. She said she wanted the smallest tablet to swallow. She did not care if there was a powder form, did not care that K-Dur could be dissolved in applesauce. She said all other things took way too long in the morning for her to get to work and only wanted the Urocit. As such, after IV supplementation, her potassium was 3.6. Diabetes was controlled with a low carb diet and SS insulin. Diarrhea resolved. Sodium remained unchanged. Thyroid medications were resumed. She was asked to follow u with her PCP for her legs. UTI was treated on basis of initial urinalysis results. PHYSICAL EXAMINATION VITAL SIGNS: She was discharged with a temperature 37.2, pulse 75, blood pressure 113/74, respirations 20, 100% on room air. GENERAL: She is an alert, oriented, stocky middle-aged female at 5 feet 6 inches tall, 82.5 kg. NECK: Supple. No bruits. No JVD. LUNGS: Clear to auscultation and percussion. CARDIAC: PMI is normally placed with a regular rate and rhythm. ABDOMEN: Soft, nontender. Normal bowel sounds. EXTREMITIES: Legs without edema. NEURO: Knee reflexes intact. Again, she has longstanding chronic leg pain and weakness that seems to worsen with walking too far and hyperflexing her lumbar spine. Would suggest outpatient workup for spinal stenosis. As for her potassium, she has been discharged on the Urocit. I have asked her PCP to please have her potassium checked. For the initial supplementation, she was on 20 mEq b.i.d. and then is going to be down to 20 mEq daily after a week. She had a UTI, with culture showing polymicrobial growth. This culture was available after discharge. She was discharged on Macrobid 100 b.i.d. for 7 days. TD: 07/28/2018 10:30 [facility]
== END 2018-07-19 18:49 | disposition home or self-care (01) ==
LOC: ED 19:14 → MS2 21:20
PROVIDERS: ADMIT Family Medicine Sports Medicine; ATTEND Specialist
DX: E87.6 Hypokalemia (principal); F32.9 Major depressive disorder, single episode, unspecified; E87.1 Hypo-osmolality and hyponatremia; R19.7 Diarrhea, unspecified; K52.9 Noninfective gastroenteritis and colitis, unspecified; E11.9 Type 2 diabetes mellitus without complications; E03.9 Hypothyroidism, unspecified; G89.4 Chronic pain syndrome; M79.604 Pain in right leg; M79.605 Pain in left leg; Z86.74 Personal history of sudden cardiac arrest; Z87.440 Personal history of urinary (tract) infections; I10 Essential (primary) hypertension; N39.0 Urinary tract infection, site not specified; Z95.0 Presence of cardiac pacemaker; Z95.810 Presence of automatic (implantable) cardiac defibrillator; Z66 Do not resuscitate; Z72.89 Other problems related to lifestyle; Z79.4 Long term (current) use of insulin
CPT/HCPCS: 36415; 80048; 80053; 81001; 83036; 83690; 83735; 84100; 84132; 84133; 84439; 84443; 84484; 85025; 87086; 93005; 96365; 96366; 96367; 96368; 99284; 99285; A9270; G0378; J1815; 81003

== ENCOUNTER 2018-08-27 20:15 | Observation (INO) | payer OTHER ==
[2018-08-27] MEDS ORDERED: SODIUM CHLORIDE 0.9% 1,000 ML IV ONE ×2 (20:35→21:05)
[2018-08-27] MEDS ORDERED: POTASSIUM CHLOR 10 MEQ/100 ML 10 MEQ/100 ML BAG IV ONE (20:35)
[2018-08-27] MEDS ORDERED: POTASSIUM BICARB 25 MEQ TABLET PO STA (20:35)
[2018-08-27] MEDS ORDERED: oxyCODONE 5 MG TABLET PO STA (20:36)
--- NOTE | 2018-08-27 20:38 | ED Physician Documentation ---
History of Present Illness - Stated complaint Stated Complaint: LOW POTASSIUM - Chief complaint Chief Complaint: General - History obtained from History obtained from: Patient - History of Present Illness Timing: Other (This is a 58-year-old woman with history of cardiac arrest with AICD in place. Last month she was admitted for low potassium. She has not been feeling well recently and saw her physician last week for a UTI and was treated with Macrobid. She continues to have right flank pain and urinary frequency. Last week her potassium was 3.5 but had a recheck today and it was 2.6 and her p hysician referred her to the emergency department. 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 Cardiovascular: Pacemaker, AICD - Present Medications Home Medications: Ambulatory Orders Medication Instructions Recorded Confirmed RX: Insulin Glargine,Hum.rec.anlog 26 units SQ DAILY PM 10/08/16 07/18/18 [Basaglar Kwikpen U-100] RX: Levothyroxine Sodium 25 mcg PO DAILY 10/08/16 07/18/18 RX: Metformin HCl 1,000 mg PO BID 10/08/16 07/18/18 RX: Trazodone HCl 100 mg PO QPM 10/08/16 07/19/18 RX: Insulin Glargine,Hum.rec.anlog 25 unit SUBQ DAILY 07/19/18 07/19/18 [Basaglar Kwikpen U-100] RX: Methocarbamol 750 mg PO QPM PRN 07/19/18 07/19/18 RX: Metoprolol Succinate [Toprol 50 mg PO BID 07/19/18 07/19/18 Xl] RX: Nitrofurantoin [Macrobid] 100 mg PO BID #14 capsule 07/19/18 RX: Potassium Citrate [Urocit-K] 20 meq PO BID #150 tablet 07/19/18 RX: Sertraline HCl 200 mg PO DAILY 07/19/18 07/19/18 - Allergies Allergies/Adverse Reactions: Allergies Allergy/AdvReac Type Severity Reaction Status Date / Time naproxen Allergy Unknown Verified 08/27/18 20:22 Sulfa (Sulfonamide Allergy Unknown Verified 08/27/18 20:22 Antibiotics) gabapentin AdvReac Unknown Verified 08/27/18 20:22 oxycodone AdvReac Itching Verified 08/27/18 20:22 - Social History Does the pt smoke?: No Smoking Status: Never smoker Does the pt drink ETOH?: Yes Does the pt have substance abuse?: No - Immunizations Immunizations are current?: Yes - POLST Patient has POLST: No POLST Status: DNR PD ED PE NORMAL - Vitals Vital signs reviewed: Yes - General General: Alert and oriented X 3, No acute distress - HEENT HEENT: PERRL, EOMI - Neck Neck: Supple, no meningeal sign, No bony TTP - Cardiac Cardiac: RRR, No murmur - Respiratory Respiratory: No respiratory distress, Clear bilaterally - Abdomen Abdomen: Non tender - Back Back: No CVA TTP, No spinal TTP - Extremities Extremities: No edema, No calf tenderness / cord - Psych Psych: Normal mood, Normal affect Results - Vitals Vitals: Vital Signs - 24 hr 08/27/18 08/27/18 08/27/18 20:17 20:50 21:39 Temperature 36.5 C Heart Rate 100 93 83 Respiratory 16 12 14 Rate Blood Pressure 154/87 H 144/85 H 154/83 H O2 Saturation 97 99 99 Oxygen O2 Source Room air - Labs Labs: Laboratory Tests 08/27/18 08/27/18 08/27/18 10:12 20:43 20:43 WBC RBC Hgb Hct MCV MCH MCHC RDW Plt Count MPV Neut # (Auto) Lymph # (Auto) Grand # (Auto) Eos # (Auto) Baso # (Auto) Absolute Nucleated RBC Nucleated RBC % Sodium 128 L Potassium 2.9 L Chloride 84 L Carbon Dioxide 21 Anion Gap 23.0 H BUN 51 H Creatinine 2.5 H Estimated GFR (MDRD) 20 L Glucose 354 H Glycated Hemoglobin 7.2 H Estim Average Glucose 160 H Calcium 10.2 Magnesium 1.9 Urine Color Urine Clarity Urine pH Ur Specific [place] Urine Protein Urine Glucose (UA) Urine Ketones Urine Occult Blood Urine Nitrite Urine Bilirubin Urine Urobilinogen Ur Leukocyte Esterase Ur Microscopic Review Urine Culture Comments Ethyl Alcohol 6.3 08/27/18 08/27/18 21:07 21:45 WBC 10.4 RBC 3.73 L Hgb 12.0 Hct 34.2 L MCV 91.5 MCH 32.2 H MCHC 35.2 RDW 16.3 H Plt Count 323 MPV 8.6 Neut # (Auto) 6.6 Lymph # (Auto) 2.6 Grand # (Auto) 0.9 Eos # (Auto) 0.2 Baso # (Auto) 0.2 H Absolute Nucleated RBC 0.00 Nucleated RBC % 0.0 Sodium Potassium Chloride Carbon Dioxide Anion Gap BUN Creatinine Estimated GFR (MDRD) Glucose Glycated Hemoglobin Estim Average Glucose Calcium Magnesium Urine Color YELLOW Urine Clarity CLEAR Urine pH 5.5 Ur Specific [place] 1.020 Urine Protein TRACE Urine Glucose (UA) >=1000 H Urine Ketones NEGATIVE Urine Occult Blood TRACE-LYSE Urine Nitrite NEGATIVE Urine Bilirubin NEGATIVE Urine Urobilinogen 0.2 (NORMAL) Ur Leukocyte Esterase NEGATIVE Ur Microscopic Review NOT INDICATED Urine Culture Comments NOT INDICATED Ethyl Alcohol PD MEDICAL DECISION MAKING - ED course ED course: This is a 58-year-old woman who presents for potassium repletion after seeing her physician today and having low potassium in the office. On review of her labs today she also has renal failure. She showed me her outpatient labs which were available to her electronically. On August 22 she had a creatinine of 1.1 with a BUN of 24. So her kidney function is really taken and nosedive in a fairly acute manner. She will need to be hospitalized for further management and treatment and I spoke with Dr. You for observation at 9:44 PM. Departure - Departure Disposition: ED Place in Observation Clinical Impression: Hypokalemia, Type 2 diabetes mellitus, ARF (acute renal failure) Condition: Serious Discharge Date/Time: 08/27/18 22:57
[2018-08-27 21:01] LABS: CALCIUM 10.2 mg/dL (8.5-10.3); CREATININE 2.5 mg/dL (0.4-1.0); MAGNESIUM 1.9 mg/dL (1.7-2.8)
[2018-08-27 21:14] LABS: BASOPHILS # (AUTO) 0.2 10^3/uL (0.0-0.1); BASOPHILS % (AUTO) 1.9 %; EOSINOPHILS # (AUTO) 0.2 10^3/uL (0.0-0.7); EOSINOPHILS % (AUTO) 1.5 %; LYMPHOCYTES # (AUTO) 2.6 10^3/uL (1.5-3.5); LYMPHOCYTES % (AUTO) 24.8 %; MEAN CORPUSCULAR HEMOGLOBIN 32.2 pg (27.0-31.0); MEAN CORPUSCULAR HGB CONC 35.2 g/dL (32.0-36.0); MEAN CORPUSCULAR VOLUME 91.5 fL (81.0-99.0); MEAN PLATELET VOLUME 8.6 fL (7.9-10.8); MONOCYTES # (AUTO) 0.9 10^3/uL (0.0-1.0); MONOCYTES % (AUTO) 8.7 %; NEUTROPHILS # (AUTO) 6.6 10^3/uL (1.5-6.6); NEUTROPHILS % (AUTO) 63.1 %; PLT - PLATELET COUNT 323 10^3/uL (130-450); RED BLOOD COUNT 3.73 10^6/uL (4.20-5.40); RED CELL DISTRIBUTION WIDTH 16.3 % (12.0-15.0); WHITE BLOOD COUNT 10.4 x10^3/uL (4.8-10.8)
[2018-08-27] MEDS ORDERED: PROCHLORPERAZINE 10 MG/2 ML VIAL IVP PRN (21:52)
[2018-08-27] MEDS ORDERED: ACETAMINOPHEN 325 MG TABLET PO PRN (21:52)
[2018-08-27] MEDS ORDERED: SODIUM CHLORIDE FLUSH 0.9% 10 ML SYRINGE IVP PRN (21:52)
[2018-08-27] MEDS ORDERED: PROMETHAZINE 25 MG/1 ML VIAL IM PRN (21:52)
[2018-08-27] MEDS ORDERED: ONDANSETRON 4 MG/2 ML VIAL IVP PRN (21:52)
[2018-08-27] MEDS ORDERED: POTASSIUM CHLORIDE 20 MEQ TABLET PO SCH (21:57)
[2018-08-27] MEDS ORDERED: METHOCARBAMOL 500 MG TABLET PO PRN (21:57)
[2018-08-27 22:12] LABS: BILIRUBIN,URINE NEGATIVE (NEGATIVE); GLUCOSE, URINE (UA) >=1000 mg/dL (NEGATIVE); KETONES,URINE (UA) NEGATIVE (NEGATIVE); LEUKOCYTE ESTERASE, URINE NEGATIVE (NEGATIVE); NITRITE,URINE NEGATIVE (NEGATIVE); OCCULT BLOOD,URINE TRACE-LYSE (NEGATIVE); PH,URINE 5.5 PH (5.0-7.5); PROTEIN,URINE TRACE mg/dL (NEGATIVE); UROBILINOGEN,URINE 0.2 (NORMAL) E.U./dL (NORMAL)
--- NOTE | 2018-08-27 22:12 | HISTORY & PHYSICAL EXAMINATION ---
Chief Complaint - Chief Complaint Chief Complaint: Low potassium History of Present Illness - Admitted From Admitted From:: Emergency Department - History Obtained From Records Reviewed: Yes History obtained from: Patient Exam Limitations: None - History of Present Illness HPI Comment/Other: Patient is a 58-year-old female with a past medical history significant for cardiac arrest status post AICD, insulin-dependent diabetes mellitus type 2, hypertension, hyperlipidemia, hypothyroidism, depression, anxiety, PTSD and mem ory impairment who presented to the emergency department with a chief complaint of low potassium. The patient states that she has been feeling ill for the last week and had gone to see her primary care physician on Saturday. She states that she been feeling as though she was having a hard time urinating, she was having right flank pain and suprapubic abdominal pain. She states that the pain is co nstant and dull and achy. She denies any fevers or chills. She denies any dysuria. She denies any nausea, vomiting, constipation or diarrhea. She states that she does normally have chronic diarrhea but it has not changed over the last week. She states that when she went to see her primary care physician she was diagnosed with a urinary tract infection and placed on Macrobid. She states that that time she had labs drawn. She then returned to her primary care physician's office today for repeat lab work and states that she was called to go to the emergency department because her potassium had dropped from 3.5 down to 2.6. Her primary care physician was also in the process of ordering an ultrasound of her kidneys but then told her to get one in the emergency department due to her continued pelvic and right flank pain. The patient also states that she has had foamy urine. She states that she has been drinking 8 glasses of water daily and thinks that she should be well-hydrated. She denies any alcohol use. The patient denies any headaches, blurred vision, runny nose, sore throat, nasal congestion, difficulty swallowing, chest pain, shortness of breath, orthopnea, PND, increased lower extremity swelling, joint pain, joint swelling, back pain, neck stiffness, recent unintentional weight loss, changes in her appetite, night sweats, skin changes, skin rash, or any focal neurologic deficits. On presentation to the emergency department the patient was afebrile, slightly tachycardic with a heart rate of 100, hypertensive and not in any respiratory distress. In the emergency department the patient was given a K rider and 2 L of IV fluid along with p.o. potassium replacement. The patient was continued to have flank pain and abdominal pain therefore it was also given a dose of oxycodone. After giving the patient potassium replacement the emergency department physician decided to recheck her lab work which did reveal a mild hyponatremia of 128 with a blood glucose of 354, an elevated creatinine of 2.5 from a baseline of 0.9 just 2 weeks earlier and a potassium of 2.9 despite the potassium replacement. The patient also had an anion gap and her hemoglobin A1c was found to be 7.2. The patient's urine analysis was positive just for glucose but did not appear to show infection. The patient did have a positive blood alcohol despite stating that she does not drink. The patient's CBC was normal. Given the patient's acute kidney injury without obvious source and persistent hypokalemia despite potassium replacement the patient was placed in observation for continued hydration, rechecking of lab work in the morning and an ultrasound of her kidneys. 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 She has a boyfriend named Arcenio who lives on [facility] but recently has been spending more time in [place] as her boyfriend is a drinker and a smoker and she wants to get away from that environment. She states that she quit drinking 2 months ago prior to that she was a daily drinker. The patient's blood alcohol level is however positive. She states that she does occasionally smoke marijuana but denies any tobacco use. She states that she quit smoking about 20 years ago and only smoked for a few years and was never a heavy smoker. - Substance History Use: Uses substance without health or social issues: Alcohol (Patient recently cut back on alcohol previously drinking a couple of shots a day now drinks about 3-4 drinks per day on the weekend only.), Cannabis - POLST Patient has POLST: No POLST Status: Full Code Meds/Allgy - Home Medications Home Medications: Ambulatory Orders Medication Instructions Recorded Confirmed Insulin Glargine,Hum.rec.anlog 26 units SQ DAILY PM 10/08/16 07/18/18 [Basaglar Kwikpen U-100] Levothyroxine Sodium 25 mcg PO DAILY 10/08/16 07/18/18 Metformin HCl 1,000 mg PO BID 10/08/16 07/18/18 Trazodone HCl 100 mg PO QPM 10/08/16 07/19/18 Insulin Glargine,Hum.rec.anlog 25 unit SUBQ DAILY 07/19/18 07/19/18 [Basaglar Kwikpen U-100] Methocarbamol 750 mg PO QPM PRN 07/19/18 07/19/18 Metoprolol Succinate [Toprol Xl] 50 mg PO BID 07/19/18 07/19/18 Nitrofurantoin [Macrobid] 100 mg PO BID #14 capsule 07/19/18 Potassium Citrate [Urocit-K] 20 meq PO BID #150 tablet 07/19/18 Sertraline HCl 200 mg PO DAILY 07/19/18 07/19/18 - Allergies Allergies/Adverse Reactions: Allergies Allergy/AdvReac Type Severity Reaction Status Date / Time naproxen Allergy Unknown Verified 08/27/18 20:22 Sulfa (Sulfonamide Allergy Unknown Verified 08/27/18 20:22 Antibiotics) gabapentin AdvReac Unknown Verified 08/27/18 20:22 oxycodone AdvReac Itching Verified 08/27/18 20:22 Review of Systems - Other Findings Other Findings: A comprehensive review of systems was performed the pertinent positives and n egatives are stated above in the HPI and the remainder of the review of systems is negative. Prior Level of Functionality: Independent, living alone, able to perform all her activities of daily living independently. Exam - Vital Signs Reviewed Vital Signs: Yes Vital Signs: Vital Signs x48h Temp Pulse Resp BP Pulse Ox 08/27/18 21:39 83 14 154/83 H 99 08/27/18 20:50 93 12 144/85 H 99 08/27/18 20:17 36.5 C 100 16 154/87 H 97 - Physical Exam General Appearance: positive: No acute distress, Alert Eyes Bilateral: positive: Normal inspection, PERRL, EOMI, No lid inflammation, Conjunctivae nml, No scleral icterus ENT: positive: ENT inspection nml, Pharynx nml, Dry mucous membranes. negative: Purulent nasal drainage, Pharyngeal erythema, Oral lesions Neck: positive: Nml inspection, Thyroid nml, No JVD, Trachea midline. negative: Thyromegaly, Lymphadenopathy (R), Lymphadenopathy (L), Stiff neck, Kernig's sign Respiratory: positive: Chest non-tender, No respiratory distress, Breath sounds nml. negative: Wheezes, Rales, Rhonchi Cardiovascular: positive: Regular rate & rhythm, No murmur, No gallop Peripheral Pulses: positive: 2+ Abdomen: positive: Non-tender, No organomegaly, Nml bowel sounds, No distention. negative: Guarding, Rebound, Hepatomegaly Back: positive: Nml inspection, CVA tenderness (R) Skin: positive: Color nml, No rash, Warm, Dry Extremities: positive: Non-tender, Full ROM, Nml appearance, No pedal edema. negative: Calf tenderness, Joint swelling Neurologic/Psychiatric: positive: Oriented x3, CN's nml (2-12), Motor nml, Sensation nml, Mood/affect nml Conclusion/Plan - Problem List (1) PAOLO (acute kidney injury) Conclusion/Plan: Etiology of patient's acute kidney injury is unclear at this point as the patient states that she has been eating and drinking okay and denies any nausea, vomiting and has chronic diarrhea which has not changed recently. The patient is quite hyperglycemic on presentation it is possible that the hyperglycemia could have led to dehydration and acute kidney injury. The patient does appear to be dry on examination and does have hyponatremia and an elevated BUN which does point to the fact that patient likely has prerenal azotemia from dehydration. Although the patient states that she stopped drinking 2 months ago she does have a positive for alcohol level making me suspicious that she may still be drinking and could be also dehydrated from alcohol use as well as her uncontrolled blood sugars. Given the patient's anion gap and metabolic acidosis I am also concerned about possible renal tubular acidosis or Fanconi syndrome. There are trace proteins on the urinalysis along with trace blood. The patient also has right flank pain with a normal urine analysis which is unusual for obstructive kidney stone which could have also caused renal failure. The patient could have pyelonephritis that could have led to acute kidney injury however she has a normal UA, normal white blood cell count and no fever. Plan: Patient will be treated with IV fluids We will monitor patient's creatinine and BUN Control blood glucose Renal ultrasound Avoid nephrotoxic agents Check urine lytes If renal ultrasound is negative we may consider CT of the abdomen if patient's flank pain and renal failure persists. (2) Hypokalemia Conclusion/Plan: Patient presented to the emergency department due to low potassium found on lab work at her primary care physician's office. The patient received oral and IV potassium in the emergency department and despite this her potassium only improved to 2.9. Looking at her lab work and given her acute kidney injury with creatinine of 2.5 and BUN of 51 along with hypochloremic hypokalemia with hy ponatremia I would suspect that the patient is likely hypokalemic from vomiting however the patient states that she has not been having any nausea or vomiting. Given the patient's mild acidosis she could have Fanconi syndrome causing potassium wasting. Plan: Replace potassium IV n.p.o. Monitor potassium (3) Right flank pain Conclusion/Plan: Patient's urine analysis is negative for urinary tract infection however she was treated for UTI with Macrobid. It is possible to have pyelonephritis with negative UA however the patient does not have a white count or fever nor does she have any dysuria. Given the patient's acute kidney injury and right flank pain we will get a ultrasound of her kidneys and consider a CT of the abdomen if the ultrasound is negative and flank pain as well as renal failure persists. It is also possible that the patient could have kidney stone however symptoms are not consistent with kidney stone and UA only shows a small amount of occult blood.. Pain control with oxycodone and Tylenol. (4) Hypertension Conclusion/Plan: The patient is hypertensive on presentation she is on metoprolol at home. We will continue the patient's metoprolol. Given the patient's persistent hypokalemia along with hypertension we have to consider possible mineralocorticoid deficiency. Check cortisol level in the a.m. Monitor blood pressure and titrate medication as needed Qualifiers: Hypertension type: essential hypertension Qualified Code(s): I10 - Essential (primary) hypertension (5) Type 2 diabetes mellitus Conclusion/Plan: Patient's blood glucose is uncontrolled on presentation with blood sugar of 354. This is likely contributing to her dehydration and hyponatremia. Patient's hemoglobin A1c is 7.2. 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 (7) Hypothyroidism Conclusion/Plan: Patient be continued on her home dose of Synthroid Check TSH in the morning Stable Qualifiers: Hypothyroidism type: unspecified Qualified Code(s): E03.9 - Hypothyroidism, unspecified (8) Depression with anxiety Conclusion/Plan: Patient has a history of depression and anxiety. She also has PTSD from her cardiac arrest. Patient will be continued on her home dose of sertraline and trazodone. Stable - Lab Results Lab results reviewed: Yes Fish Bones: 08/27/18 21:07 08/27/18 20:43 Other Lab Results: Laboratory Results WBC 10.4 x10^3/uL (4.8-10.8) 08/27/18 21:07 RBC 3.73 10^6/uL (4.20-5.40) L 08/27/18 21:07 Hgb 12.0 g/dL (12.0-16.0) 08/27/18 21:07 Hct 34.2 % (37.0-47.0) L 08/27/18 21:07 MCV 91.5 fL (81.0-99.0) 08/27/18 21:07 MCH 32.2 pg (27.0-31.0) H 08/27/18 21:07 MCHC 35.2 g/dL (32.0-36.0) 08/27/18 21:07 RDW 16.3 % (12.0-15.0) H 08/27/18 21:07 Plt Count 323 10^3/uL (130-450) 08/27/18 21:07 MPV 8.6 fL (7.9-10.8) 08/27/18 21:07 Neut # (Auto) 6.6 10^3/uL (1.5-6.6) 08/27/18 21:07 Lymph # (Auto) 2.6 10^3/uL (1.5-3.5) 08/27/18 21:07 [place] # (Auto) 0.9 10^3/uL (0.0-1.0) 08/27/18 21:07 Eos # (Auto) 0.2 10^3/uL (0.0-0.7) 08/27/18 21:07 Baso # (Auto) 0.2 10^3/uL (0.0-0.1) H 08/27/18 21:07 Absolute Nucleated RBC 0.00 x10^3/uL 08/27/18 21:07 Nucleated RBC % 0.0 /100WBC 08/27/18 21:07 Sodium 128 mmol/L (135-145) L 08/27/18 20:43 Potassium 2.9 mmol/L (3.5-5.0) L 08/27/18 20:43 Chloride 84 mmol/L (101-111) L 08/27/18 20:43 Carbon Dioxide 21 mmol/L (21-32) 08/27/18 20:43 Anion Gap 23.0 (6-13) H 08/27/18 20:43 BUN 51 mg/dL (6-20) H 08/27/18 20:43 Creatinine 2.5 mg/dL (0.4-1.0) H 08/27/18 20:43 Estimated GFR (MDRD) 20 (>89) L 08/27/18 20:43 Glucose 354 mg/dL (70-100) H 08/27/18 20:43 Glycated Hemoglobin 7.2 % (4.6-6.2) H 08/27/18 10:12 Estim Average Glucose 160 (70-100) H 08/27/18 10:12 Calcium 10.2 mg/dL (8.5-10.3) 08/27/18 20:43 Magnesium 1.9 mg/dL (1.7-2.8) 08/27/18 20:43 Urine Color YELLOW 08/27/18 21:45 Urine Clarity CLEAR (CLEAR) 08/27/18 21:45 Urine pH 5.5 PH (5.0-7.5) 08/27/18 21:45 Ur Specific [place] 1.020 (1.002-1.030) 08/27/18 21:45 Urine Protein TRACE mg/dL (NEGATIVE) 08/27/18 21:45 Urine Glucose (UA) >=1000 mg/dL (NEGATIVE) H 08/27/18 21:45 Urine Ketones NEGATIVE mg/dL (NEGATIVE) 08/27/18 21:45 Urine Occult Blood TRACE-LYSE (NEGATIVE) 08/27/18 21:45 Urine Nitrite NEGATIVE (NEGATIVE) 08/27/18 21:45 Urine Bilirubin NEGATIVE (NEGATIVE) 08/27/18 21:45 Urine Urobilinogen 0.2 (NORMAL) E.U./dL (NORMAL) 08/27/18 21:45 Ur Leukocyte Esterase NEGATIVE (NEGATIVE) 08/27/18 21:45 Ur Microscopic Review NOT INDICATED 08/27/18 21:45 Urine Culture Comments NOT INDICATED 08/27/18 21:45 Ethyl Alcohol 6.3 mg/dL 08/27/18 20:43 Core Measures - Anticipated LOS I expect patient to be DC'd or transferred within 96 hours.: Yes - DVT/VTE - Prophylaxis VTE/DVT Prophylaxis med ordered at admit?: Yes
[2018-08-27 22:24] LABS: CLARITY,URINE CLEAR (CLEAR)
[2018-08-27 22:43] LABS: HB2 TOTAL 12.8 g/dL; HEMOGLOBIN A1C 0.71 g/dL; HEMOGLOBIN A1C % 7.2 % (4.6-6.2)
[2018-08-28] MEDS: NS W/20 MEQ KCL 1,000 ML IV SCH ×3 (00:33→19:21)
[2018-08-28] MEDS: INSULIN GLARGINE 300 UNIT/3 ML PEN SUBQ SCH ×3 (00:33→21:01)
[2018-08-28] MEDS: SODIUM CHLORIDE FLUSH 0.9% 10 ML SYRINGE IVP SCH ×3 (00:34→17:32)
--- NOTE | 2018-08-28 00:43 | Ultrasound Report ---
Reason: Acute renal failure Procedure Date: 08/27/2018 Accession Number: [id number] / [id number] Procedure: US - Retroperitoneal CPT Code: FULL RESULT: EXAM: RENAL ULTRASOUND EXAM DATE: 08/27/2018 11:40 PM. CLINICAL HISTORY: Acute renal failure. COMPARISON: None. TECHNIQUE: Real-time scanning was performed with static images obtained. FINDINGS: Right Kidney: 11.9 x 4.7 x 5.8 cm. Mildly echogenic. No hydronephrosis seen. Left Kidney: 11.4 x 6.5 x 5.3 cm. Mildly echogenic. No hydronephrosis seen. Bladder: Bilateral jets seen. The bladder volume was 85 cc. The patient was not able to void. Other: None. IMPRESSION: 1. Kidneys appear mildly echogenic. No hydronephrosis seen. 2. Bilateral ureteral jets were seen in the bladder. RADIA
[2018-08-28] MEDS: ZOLPIDEM 5 MG TABLET PO PRN ×2 (00:50→21:08)
[2018-08-28] MEDS: oxyCODONE 5 MG TABLET PO PRN ×4 (00:50→19:24)
[2018-08-28] MEDS ORDERED: POTASSIUM CHLORIDE 20 MEQ/15 ML UDC PO SCH (01:00)
[2018-08-28 07:16] LABS: BASOPHILS # (AUTO) 0.1 10^3/uL (0.0-0.1); BASOPHILS % (AUTO) 0.8 %; EOSINOPHILS # (AUTO) 0.2 10^3/uL (0.0-0.7); EOSINOPHILS % (AUTO) 2.4 %; HGB - HEMOGLOBIN 9.6 g/dL (12.0-16.0); LYMPHOCYTES # (AUTO) 2.7 10^3/uL (1.5-3.5); LYMPHOCYTES % (AUTO) 35.8 %; MEAN CORPUSCULAR HGB CONC 34.5 g/dL (32.0-36.0); MEAN CORPUSCULAR VOLUME 92.7 fL (81.0-99.0); MEAN PLATELET VOLUME 7.8 fL (7.9-10.8); MONOCYTES # (AUTO) 0.7 10^3/uL (0.0-1.0); MONOCYTES % (AUTO) 9.8 %; NEUTROPHILS # (AUTO) 3.9 10^3/uL (1.5-6.6); NEUTROPHILS % (AUTO) 51.2 %; PLT - PLATELET COUNT 248 10^3/uL (130-450); RED BLOOD COUNT 2.99 10^6/uL (4.20-5.40); RED CELL DISTRIBUTION WIDTH 15.9 % (12.0-15.0); WHITE BLOOD COUNT 7.6 x10^3/uL (4.8-10.8)
[2018-08-28 07:41] LABS: ALBUMIN 3.6 g/dL (3.2-5.5); ALBUMIN/GLOBULIN RATIO 1.2 (1.0-2.2); BILIRUBIN,TOTAL 0.6 mg/dL (0.2-1.0); CALCIUM 9.1 mg/dL (8.5-10.3); CREATININE 1.6 mg/dL (0.4-1.0); MAGNESIUM 1.9 mg/dL (1.7-2.8); PHOSPHORUS 2.7 mg/dL (2.5-4.6); TOTAL PROTEIN 6.5 g/dL (6.7-8.2)
[2018-08-28] MEDS ORDERED: POTASSIUM CHLORIDE 20 MEQ TABLET PO SCH ×2 (08:00)
[2018-08-28] MEDS: INSULIN ASPART 300 UNIT/3 ML PEN SUBQ SCH ×4 (08:17→21:00)
[2018-08-28] MEDS: ENOXAPARIN 30 MG/0.3 ML SYRINGE SUBQ SCH (08:22)
[2018-08-28] MEDS: FAMOTIDINE 20 MG TABLET PO SCH (08:22)
[2018-08-28] MEDS: SERTRALINE 50 MG TABLET PO SCH (08:23)
[2018-08-28] MEDS: LEVOTHYROXINE 25 MCG TABLET PO SCH (08:23)
[2018-08-28] MEDS: POLYETHYLENE GLYCOL 3350 17 GM PACKET PO SCH (08:31)
[2018-08-28] MEDS ORDERED: FAMOTIDINE 20 MG TABLET PO SCH (09:00)
[2018-08-28] MEDS ORDERED: ENOXAPARIN 40 MG/0.4 ML SYRINGE SUBQ SCH (09:00)
[2018-08-28] MEDS ORDERED: POTASSIUM CHLORIDE 20 MEQ/15 ML UDC PO ONE ×2 (11:00→13:00)
--- NOTE | 2018-08-28 11:20 | PROVIDER PROGRESS NOTE ---
Subjective - Prog Note Date Prog Note Date: 08/28/18 Prog Note Time: 14:30 - Subjective Subjective: Patient with continued right flank pain Ultrasound negative for hydronephrosis K 3.0. This has been replaced Continues on IVF, SCr has improved Current Medications - Current Medications Current Medications: Acetaminophen (Tylenol) 650 mg PO Q4HR PRN PRN Reason: Pain 1 to 4 Enoxaparin Sodium (Lovenox) 30 mg SUBQ DAILY [facility] Last Admin: 08/28/18 08:22 Dose: 30 mg Famotidine (Pepcid) 20 mg PO DAILY [facility] Last Admin: 08/28/18 08:22 Dose: 20 mg Potassium Chloride/Sodium Chloride (Normal Saline 0.9% W/20 Meq Kcl) 1,000 mls @ 100 mls/hr IV .Q10H [facility] Last Admin: 08/28/18 19:21 Dose: 100 mls/hr Insulin Aspart (Novolog) 1 - 5 unit SUBQ 0800,1200,1700,2100 [facility]; Protocol Last Admin: 08/28/18 17:32 Dose: 1 unit Insulin Glargine (Lantus Solostar) 25 unit SUBQ DAILY [facility] Last Admin: 08/28/18 08:45 Dose: 25 unit Insulin Glargine (Lantus Solostar) 26 unit SUBQ QPM [facility] Last Admin: 08/28/18 00:33 Dose: 26 unit Levothyroxine Sodium (Synthroid) 25 mcg PO DAILY [facility] Last Admin: 08/28/18 08:23 Dose: 25 mcg Methocarbamol (Robaxin) 750 mg PO QPM PRN PRN Reason: PAIN Metoprolol Succinate (Toprol Xl) 50 mg PO BID [facility] Last Admin: 08/28/18 12:01 Dose: Not Given Ondansetron HCl (Zofran Inj) 4 mg IVP Q6HR PRN PRN Reason: Nausea / Vomiting Oxycodone HCl (Roxicodone) 5 mg PO Q4HR PRN PRN Reason: Pain 5 to 7 Last Admin: 08/28/18 13:47 Dose: 5 mg Oxycodone HCl (Roxicodone) 10 mg PO Q4HR PRN PRN Reason: Pain 8 to 10 Last Admin: 08/28/18 19:24 Dose: 10 mg Polyethylene Glycol (Miralax) 17 gm PO DAILY [facility] Last Admin: 08/28/18 08:31 Dose: 17 gm Prochlorperazine Edisylate (Compazine Inj) 10 mg IVP Q6HR PRN PRN Reason: Nausea / Vomiting Promethazine HCl (Phenergan Inj) 25 mg IM Q6HR PRN PRN Reason: Nausea / Vomiting Sertraline HCl (Zoloft) 200 mg PO DAILY [facility] Last Admin: 08/28/18 08:23 Dose: 200 mg Sodium Chloride (Normal Saline Flush 0.9%) 10 ml IVP PRN PRN PRN Reason: NEEDED PER PROVIDER ORDERS Sodium Chloride (Normal Saline Flush 0.9%) 10 ml IVP 0100,0900,1700 [facility] Last Admin: 08/28/18 17:32 Dose: Not Given Trazodone HCl (Desyrel) 100 mg PO QPM [facility] Zolpidem Tartrate (Ambien) 5 mg PO QPM PRN PRN Reason: Insomnia Last Admin: 08/28/18 00:50 Dose: 5 mg Objective - Vital Signs/Intake & Output Reviewed Vital Signs: Yes Vital Signs: Vital Signs x48h Temp Pulse Resp BP Pulse Ox 08/28/18 06:32 36.8 C 60 16 116/67 96 Intake & Output: Intake & Output 08/25/18 08/26/18 08/27/18 08/28/18 23:59 23:59 23:59 23:59 Intake Total 1100 2105.003 Balance 1100 2105.003 - Objective General Appearance: positive: No acute distress, Alert ENT: positive: ENT inspection nml, Pharynx nml, No signs of dehydration Neck: positive: Nml inspection, Trachea midline Respiratory: positive: Chest non-tender, No respiratory distress, Breath sounds nml Cardiovascular: positive: Regular rate & rhythm, No murmur Peripheral Pulses: 2+ Dorsalis pedis (R), 2+ Dorsalis pedis (L) Abdomen: positive: Non-tender, No organomegaly, Nml bowel sounds, No distention Back: positive: Nml inspection, CVA tenderness (R). negative: CVA tenderness (L) Skin: positive: Warm, Dry Extremities: positive: Non-tender, Full ROM, Nml appearance Neurologic/Psychiatric: positive: Oriented x3, CN's nml (2-12), Motor nml, Sensation nml, Mood/affect nml - Lab Results Fish Bones: 08/28/18 07:00 08/28/18 15:24 Other Labs: Lab Results x24hrs 08/28/18 08/28/18 08/28/18 Range/Units 07:48 07:00 07:00 WBC (4.8-10.8) x10^3/uL RBC (4.20-5.40) 10^6/uL Hgb (12.0-16.0) g/dL Hct (37.0-47.0) % MCV (81.0-99.0) fL MCH (27.0-31.0) pg MCHC (32.0-36.0) g/dL RDW (12.0-15.0) % Plt Count (130-450) 10^3/uL MPV (7.9-10.8) fL Neut # (Auto) (1.5-6.6) 10^3/uL Lymph # (Auto) (1.5-3.5) 10^3/uL Lander # (Auto) (0.0-1.0) 10^3/uL Eos # (Auto) (0.0-0.7) 10^3/uL Baso # (Auto) (0.0-0.1) 10^3/uL Absolute Nucleated RBC x10^3/uL Nucleated RBC % /100WBC Sodium (135-145) mmol/L Potassium (3.5-5.0) mmol/L Chloride (101-111) mmol/L Carbon Dioxide (21-32) mmol/L Anion Gap (6-13) BUN (6-20) mg/dL Creatinine (0.4-1.0) mg/dL Estimated GFR (MDRD) (>89) Glucose (70-100) mg/dL POC Whole Bld Glucose 138 H (70 - 100) mg/dL Glycated Hemoglobin (4.6-6.2) % Estim Average Glucose (70-100) Lactic Acid (0.5-2.2) mmol/L Calcium (8.5-10.3) mg/dL Phosphorus (2.5-4.6) mg/dL Magnesium (1.7-2.8) mg/dL Total Bilirubin (0.2-1.0) mg/dL AST (10-42) IU/L ALT (10-60) IU/L Alkaline Phosphatase (42-121) IU/L Total Protein (6.7-8.2) g/dL Albumin (3.2-5.5) g/dL Globulin (2.1-4.2) g/dL Albumin/Globulin Ratio (1.0-2.2) TSH 3.53 (0.34-5.60) uIU/mL Cortisol AM Sample 14.7 ug/dL Urine Color Urine Clarity (CLEAR) Urine pH (5.0-7.5) PH Ur Specific [place] (1.002-1.030) Urine Protein (NEGATIVE) mg/dL Urine Glucose (UA) (NEGATIVE) mg/dL Urine Ketones (NEGATIVE) mg/dL Urine Occult Blood (NEGATIVE) Urine Nitrite (NEGATIVE) Urine Bilirubin (NEGATIVE) Urine Urobilinogen (NORMAL) E.U./dL Ur Leukocyte Esterase (NEGATIVE) Ur Microscopic Review Urine Culture Comments Ethyl Alcohol mg/dL 08/28/18 08/28/18 08/28/18 Range/Units 07:00 07:00 07:00 WBC 7.6 (4.8-10.8) x10^3/uL RBC 2.99 L (4.20-5.40) 10^6/uL Hgb 9.6 L (12.0-16.0) g/dL Hct 27.7 L (37.0-47.0) % MCV 92.7 (81.0-99.0) fL MCH 32.0 H (27.0-31.0) pg MCHC 34.5 (32.0-36.0) g/dL RDW 15.9 H (12.0-15.0) % Plt Count 248 (130-450) 10^3/uL MPV 7.8 L (7.9-10.8) fL Neut # (Auto) 3.9 (1.5-6.6) 10^3/uL Lymph # (Auto) 2.7 (1.5-3.5) 10^3/uL Lander # (Auto) 0.7 (0.0-1.0) 10^3/uL Eos # (Auto) 0.2 (0.0-0.7) 10^3/uL Baso # (Auto) 0.1 (0.0-0.1) 10^3/uL Absolute Nucleated RBC 0.00 x10^3/uL Nucleated RBC % 0.0 /100WBC Sodium 137 (135-145) mmol/L Potassium 3.0 L (3.5-5.0) mmol/L Chloride 98 L (101-111) mmol/L Carbon Dioxide 28 (21-32) mmol/L Anion Gap 11.0 (6-13) BUN 38 H (6-20) mg/dL Creatinine 1.6 H (0.4-1.0) mg/dL Estimated GFR (MDRD) 33 L (>89) Glucose 133 H (70-100) mg/dL POC Whole Bld Glucose (70 - 100) mg/dL Glycated Hemoglobin (4.6-6.2) % Estim Average Glucose (70-100) Lactic Acid 1.5 (0.5-2.2) mmol/L Calcium 9.1 (8.5-10.3) mg/dL Phosphorus 2.7 (2.5-4.6) mg/dL Magnesium 1.9 (1.7-2.8) mg/dL Total Bilirubin 0.6 (0.2-1.0) mg/dL AST 20 (10-42) IU/L ALT 23 (10-60) IU/L Alkaline Phosphatase 81 (42-121) IU/L Total Protein 6.5 L (6.7-8.2) g/dL Albumin 3.6 (3.2-5.5) g/dL Globulin 2.9 (2.1-4.2) g/dL Albumin/Globulin Ratio 1.2 (1.0-2.2) TSH (0.34-5.60) uIU/mL Cortisol AM Sample ug/dL Urine Color Urine Clarity (CLEAR) Urine pH (5.0-7.5) PH Ur Specific [place] (1.002-1.030) Urine Protein (NEGATIVE) mg/dL Urine Glucose (UA) (NEGATIVE) mg/dL Urine Ketones (NEGATIVE) mg/dL Urine Occult Blood (NEGATIVE) Urine Nitrite (NEGATIVE) Urine Bilirubin (NEGATIVE) Urine Urobilinogen (NORMAL) E.U./dL Ur Leukocyte Esterase (NEGATIVE) Ur Microscopic Review Urine Culture Comments Ethyl Alcohol mg/dL 08/28/18 08/27/18 08/27/18 Range/Units 00:09 21:45 21:07 WBC 10.4 (4.8-10.8) x10^3/uL RBC 3.73 L (4.20-5.40) 10^6/uL Hgb 12.0 (12.0-16.0) g/dL Hct 34.2 L (37.0-47.0) % MCV 91.5 (81.0-99.0) fL MCH 32.2 H (27.0-31.0) pg MCHC 35.2 (32.0-36.0) g/dL RDW 16.3 H (12.0-15.0) % Plt Count 323 (130-450) 10^3/uL MPV 8.6 (7.9-10.8) fL Neut # (Auto) 6.6 (1.5-6.6) 10^3/uL Lymph # (Auto) 2.6 (1.5-3.5) 10^3/uL Lander # (Auto) 0.9 (0.0-1.0) 10^3/uL Eos # (Auto) 0.2 (0.0-0.7) 10^3/uL Baso # (Auto) 0.2 H (0.0-0.1) 10^3/uL Absolute Nucleated RBC 0.00 x10^3/uL Nucleated RBC % 0.0 /100WBC Sodium (135-145) mmol/L Potassium (3.5-5.0) mmol/L Chloride (101-111) mmol/L Carbon Dioxide (21-32) mmol/L Anion Gap (6-13) BUN (6-20) mg/dL Creatinine (0.4-1.0) mg/dL Estimated GFR (MDRD) (>89) Glucose (70-100) mg/dL POC Whole Bld Glucose 269 H (70 - 100) mg/dL Glycated Hemoglobin (4.6-6.2) % Estim Average Glucose (70-100) Lactic Acid (0.5-2.2) mmol/L Calcium (8.5-10.3) mg/dL Phosphorus (2.5-4.6) mg/dL Magnesium (1.7-2.8) mg/dL Total Bilirubin (0.2-1.0) mg/dL AST (10-42) IU/L ALT (10-60) IU/L Alkaline Phosphatase (42-121) IU/L Total Protein (6.7-8.2) g/dL Albumin (3.2-5.5) g/dL Globulin (2.1-4.2) g/dL Albumin/Globulin Ratio (1.0-2.2) TSH (0.34-5.60) uIU/mL Cortisol AM Sample ug/dL Urine Color YELLOW Urine Clarity CLEAR (CLEAR) Urine pH 5.5 (5.0-7.5) PH Ur Specific [place] 1.020 (1.002-1.030) Urine Protein TRACE (NEGATIVE) mg/dL Urine Glucose (UA) >=1000 H (NEGATIVE) mg/dL Urine Ketones NEGATIVE (NEGATIVE) mg/dL Urine Occult Blood TRACE-LYSE (NEGATIVE) Urine Nitrite NEGATIVE (NEGATIVE) Urine Bilirubin NEGATIVE (NEGATIVE) Urine Urobilinogen 0.2 (NORMAL) (NORMAL) E.U./dL Ur Leukocyte Esterase NEGATIVE (NEGATIVE) Ur Microscopic Review NOT INDICATED Urine Culture Comments NOT INDICATED Ethyl Alcohol mg/dL 08/27/18 08/27/18 08/27/18 Range/Units 20:43 20:43 10:12 WBC (4.8-10.8) x10^3/uL RBC (4.20-5.40) 10^6/uL Hgb (12.0-16.0) g/dL Hct (37.0-47.0) % MCV (81.0-99.0) fL MCH (27.0-31.0) pg MCHC (32.0-36.0) g/dL RDW (12.0-15.0) % Plt Count (130-450) 10^3/uL MPV (7.9-10.8) fL Neut # (Auto) (1.5-6.6) 10^3/uL Lymph # (Auto) (1.5-3.5) 10^3/uL Lander # (Auto) (0.0-1.0) 10^3/uL Eos # (Auto) (0.0-0.7) 10^3/uL Baso # (Auto) (0.0-0.1) 10^3/uL Absolute Nucleated RBC x10^3/uL Nucleated RBC % /100WBC Sodium 128 L (135-145) mmol/L Potassium 2.9 L (3.5-5.0) mmol/L Chloride 84 L (101-111) mmol/L Carbon Dioxide 21 (21-32) mmol/L Anion Gap 23.0 H (6-13) BUN 51 H (6-20) mg/dL Creatinine 2.5 H (0.4-1.0) mg/dL Estimated GFR (MDRD) 20 L (>89) Glucose 354 H (70-100) mg/dL POC Whole Bld Glucose (70 - 100) mg/dL Glycated Hemoglobin 7.2 H (4.6-6.2) % Estim Average Glucose 160 H (70-100) Lactic Acid (0.5-2.2) mmol/L Calcium 10.2 (8.5-10.3) mg/dL Phosphorus (2.5-4.6) mg/dL Magnesium 1.9 (1.7-2.8) mg/dL Total Bilirubin (0.2-1.0) mg/dL AST (10-42) IU/L ALT (10-60) IU/L Alkaline Phosphatase (42-121) IU/L Total Protein (6.7-8.2) g/dL Albumin (3.2-5.5) g/dL Globulin (2.1-4.2) g/dL Albumin/Globulin Ratio (1.0-2.2) TSH (0.34-5.60) uIU/mL Cortisol AM Sample ug/dL Urine Color Urine Clarity (CLEAR) Urine pH (5.0-7.5) PH Ur Specific [place] (1.002-1.030) Urine Protein (NEGATIVE) mg/dL Urine Glucose (UA) (NEGATIVE) mg/dL Urine Ketones (NEGATIVE) mg/dL Urine Occult Blood (NEGATIVE) Urine Nitrite (NEGATIVE) Urine Bilirubin (NEGATIVE) Urine Urobilinogen (NORMAL) E.U./dL Ur Leukocyte Esterase (NEGATIVE) Ur Microscopic Review Urine Culture Comments Ethyl Alcohol 6.3 mg/dL Assessment/Plan - Problem List (1) PAOLO (acute kidney injury) Impression: Likely related to prerenal azotemia r/t dehydration as she had hyponatremia and an elevated BUN. She has been treated with IV fluids and her SCr and BUN improved. Renal u/s with mild echogenicity of both kidneys without hydronephrosis Plan: continue IV fluids obtain labs in the morning Control blood glucose Avoid nephrotoxic agents Check urine lytes, awaiting these to be collected Renal failure has improved, although pain persists. Await ordering CT scan as her creatinine is improving (2) Hypokalemia Impression: Patient presented to the emergency department due to low potassium found on lab work at her primary care physician's office. The patient received oral and IV potassium in the emergency department and despite this her potassium only improved to 2.9. Her potassium level was 3.0 today. She received 60 mEq KCL today. Plan: Recheck potassium at 1500 replete as needed recheck potassium in the morning (3) Right flank pain Impression: Patient's urine analysis is negative for urinary tract infection however she was treated for UTI with Macrobid recently. It is possible to have pyelonephritis with negative UA however the patient does not have a white count or fever nor does she have any dysuria. Ultrasound of the kidneys negative for etiology of her pain. Plan: Pain control with oxycodone and Tylenol. (4) Hypertension Impression: The patient was hypertensive on presentation. Her sBP have been stable since admission. Plan: continue home dose of metoprolol Monitor blood pressure and titrate medication as needed Qualifiers: Hypertension type: essential hypertension Qualified Code(s): I10 - Essential (primary) hypertension (5) Type 2 diabetes mellitus Impression: Patient's blood glucose is uncontrolled on presentation with blood sugar of 354. This was likely contributing to her dehydration and hyponatremia. Patient's hemoglobin A1c is 7.2. Blood sugars are now controlled. Plan: continue long acting insulin SSI ACHS blood glucose monitoring Qualifiers: Diabetes mellitus detention insulin use: with rn long term care use Diabetes mellitus complication status: with hyperglycemia Qualified Code(s): E11.65 - Type 2 diabetes mellitus with hyperglycemia; Z79.4 - meterman (current) use of insulin (6) Hyponatremia Impression: Likely combination of hypovolemic hyponatremia and pseudo hyponatremia secondary to hyperglycemia. She was given IVF and her blood sugars have stabilized. Plan: sodium level now wnl continue to monitor (7) Hypothyroidism Impression/plan: TSH 3.53. Patient be continued on her home dose of Synthroid. TSH 3.53 Qualifiers: Hypothyroidism type: unspecified Qualified Code(s): E03.9 - Hypothyroidism, unspecified (8) Depression with anxiety Impression/Plan: Stable. Patient has a history of depression and anxiety. She also has PTSD from her cardiac arrest. Patient will be continued on her home dose of sertraline and trazodone.
[2018-08-28] MEDS: METOPROLOL SUCCINATE 50 MG TABLET PO SCH ×2 (12:01→21:02)
[2018-08-28 15:43] LABS: CREATININE 1.7 mg/dL (0.4-1.0); MAGNESIUM 1.9 mg/dL (1.7-2.8); PHOSPHORUS 2.5 mg/dL (2.5-4.6)
[2018-08-28] MEDS ORDERED: traZODone 50 MG TABLET PO SCH (21:00)
[2018-08-29] MEDS: SODIUM CHLORIDE FLUSH 0.9% 10 ML SYRINGE IVP SCH ×2 (00:07→08:38)
[2018-08-29] MEDS: oxyCODONE 5 MG TABLET PO PRN ×3 (04:25→12:44)
[2018-08-29] MEDS: NS W/20 MEQ KCL 1,000 ML IV SCH (04:26)
[2018-08-29 06:57] LABS: BASOPHILS % (AUTO) 0.8 %; EOSINOPHILS # (AUTO) 0.3 10^3/uL (0.0-0.7); EOSINOPHILS % (AUTO) 4.4 %; HGB - HEMOGLOBIN 9.2 g/dL (12.0-16.0); LYMPHOCYTES # (AUTO) 2.5 10^3/uL (1.5-3.5); LYMPHOCYTES % (AUTO) 42.4 %; MEAN CORPUSCULAR HEMOGLOBIN 32.4 pg (27.0-31.0); MEAN CORPUSCULAR HGB CONC 33.8 g/dL (32.0-36.0); MEAN CORPUSCULAR VOLUME 95.8 fL (81.0-99.0); MEAN PLATELET VOLUME 8.6 fL (7.9-10.8); MONOCYTES # (AUTO) 0.5 10^3/uL (0.0-1.0); MONOCYTES % (AUTO) 9.1 %; NEUTROPHILS # (AUTO) 2.6 10^3/uL (1.5-6.6); NEUTROPHILS % (AUTO) 43.3 %; PLT - PLATELET COUNT 247 10^3/uL (130-450); RED BLOOD COUNT 2.83 10^6/uL (4.20-5.40); RED CELL DISTRIBUTION WIDTH 16.3 % (12.0-15.0); WHITE BLOOD COUNT 5.9 x10^3/uL (4.8-10.8)
[2018-08-29 07:16] LABS: CALCIUM 8.6 mg/dL (8.5-10.3); CREATININE 1.2 mg/dL (0.4-1.0)
[2018-08-29 07:58] LABS: CREATININE,URINE 60.8 mg/dL; POTASSIUM,URINE 25.7 mmol/L
[2018-08-29] MEDS ORDERED: POTASSIUM CHLORIDE 20 MEQ/15 ML UDC PO ONE (08:00)
[2018-08-29] MEDS: INSULIN ASPART 300 UNIT/3 ML PEN SUBQ SCH ×2 (08:05→12:20)
[2018-08-29] MEDS: POLYETHYLENE GLYCOL 3350 17 GM PACKET PO SCH (08:28)
--- NOTE | 2018-08-29 08:31 | DISCHARGE SUMMARY ---
"Discharge Summary Admit Date: 08/27/18 Discharge Date: 08/29/18 Discharging Provider: Mary DONALDSON Primary Care Provider: Dr. Keli Ayala Code Status: Attempt Resuscitation Condition at Discharge: Good Discharge Disposition: 01 Home, Self Care - DIAGNOSES Admission Diagnoses: (1) PAOLO (acute kidney injury) (2) Hypokalemia (3) Right flank pain (4) Hypertension (5) Type 2 diabetes mellitus (6) Hyponatremia (7) Hypothyroidism (8) Depression with anxiety Discharge Diagnoses with Status of Each Condition: (1) PAOLO (acute kidney injury), resolved (2) Hypokalemia, improved (3) Right flank pain, stable (4) Hypertension, stable (5) Type 2 diabetes mellitus, improved (6) Hyponatremia, resolved (7) Hypothyroidism, stable (8) Depression with anxiety, stable - HPI History of Present Illness: Per Dr. Paresh You's H&P dated 08/27/2018: 'Patient is a 58-year-old female with a past medical history significant for cardiac arrest status post AICD, insulin-dependent diabetes mellitus type 2, hypertension, hyperlipidemia, hypothyroidism, depression, anxiety, PTSD and me tree impairment who presented to the emergency department with a chief complaint of low potassium. The patient states that she has been feeling ill for the last week and had gone to see her primary care physician on Saturday. She states that she been feeling as though she was having a hard time urinating, she was having right flank pain and suprapubic abdominal pain. She states that the pain is c onstant and dull and achy. She denies any fevers or chills. She denies any dysuria. She denies any nausea, vomiting, constipation or diarrhea. She states that she does normally have chronic diarrhea but it has not changed over the last week. She states that when she went to see her primary care physician she was diagnosed with a urinary tract infection and placed on Macrobid. She states that that time she had labs drawn. She then returned to her primary care physician's office today for repeat lab work and states that she was called to go to the emergency department because her potassium had dropped from 3.5 down to 2.6. Her primary care physician was also in the process of ordering an ultrasound of her kidneys but then told her to get one in the emergency department due to her continued pelvic and right flank pain. The patient also states that she has had foamy urine. She states that she has been drinking 8 glasses of water daily and thinks that she should be well-hydrated. She denies any alcohol use. The patient denies any headaches, blurred vision, runny nose, sore throat, nasal congestion, difficulty swallowing, chest pain, shortness of breath, orthopnea, PND, increased lower extremity swelling, joint pain, joint swelling, back pain, neck stiffness, recent unintentional weight loss, changes in her appetite, night sweats, skin changes, skin rash, or any focal neurologic deficits. On presentation to the emergency department the patient was afebrile, slightly tachycardic with a heart rate of 100, hypertensive and not in any respiratory distress. In the emergency department the patient was given a K rider and 2 L of IV fluid along with p.o. potassium replacement. The patient was continued to have flank pain and abdominal pain therefore it was also given a dose of oxycodone. After giving the patient potassium replacement the emergency department physician decided to recheck her lab work which did reveal a mild hyponatremia of 128 with a blood glucose of 354, an elevated creatinine of 2.5 from a baseline of 0.9 just 2 weeks earlier and a potassium of 2.9 despite the potassium replacement. The patient also had an anion gap and her hemoglobin A1c was found to be 7.2. The patient's urine analysis was positive just for glucose but did not appear to show infection. The patient did have a positive blood alcohol despite stating that she does not drink. The patient's CBC was normal. Given the patient's acute kidney injury without obvious source and persistent hypokalemia despite potassium replacement the patient was placed in observation for continued hydration, rechecking of lab work in the morning and an ultrasound of her kidneys.' - CONSULTS | PROCEDURES Consultations: None - HOSPITAL COURSE Hospital Course: by problem: (1) PAOLO (acute kidney injury) Likely related to prerenal azotemia r/t dehydration as she had hyponatremia and an elevated BUN on admission. She has been treated with IV fluids and her SCr and BUN improved. Renal u/s with mild echogenicity of both kidneys without hydronephrosis. Urine lytes obtained on the day of discharge. Recommend patient to follow-up with PCP within 2-3 days for lab work. (2) Hypokalemia Patient presented to the emergency department due to low potassium found on lab work at her primary care physician's office. The patient received oral and IV potassium in the emergency department and despite this her potassium only improved to 2.9. Her potassium level was 3.0 today. She received 60 mEq KCL 08/28/2018. Her potassium improved to 3.5 on the day of discharge. She was given 40 mEq KCL replacement. She should follow-up with her PCP in 2-3 days for lab work (3) Right flank pain Patient's urine analysis is negative for urinary tract infection however she was treated for UTI with Macrobid recently. It is possible to have pyelonephritis with negative UA however the patient does not have a white count or fever nor does she have any dysuria. Ultrasound of the kidneys negative for etiology of her pain. She was discharged home with #15 oxycodone. (4) Hypertension The patient was hypertensive on presentation. Her sBP have been stable since admission. He home dose of metoprolol was continued. (5) Type 2 diabetes mellitus Patient's blood glucose is uncontrolled on presentation with blood sugar of 354. This was likely contributing to her dehydration and hyponatremia. Patient's hemoglobin A1c is 7.2. Blood sugars are now controlled. Her home long acting insulin was continued during hospitalization and she was on SSI. (6) Hyponatremia Likely combination of hypovolemic hyponatremia and pseudo hyponatremia secondary to hyperglycemia. She was given IVF and her blood sugars have stabilized and her sodium level normalized. (7) Hypothyroidism TSH 3.53. Patient was continued on her home dose of Synthroid. (8) Depression with anxiety Stable. Patient has a history of depression and anxiety. She also has PTSD from her cardiac arrest. Patient was continued on her home dose of sertraline and trazodone. - ALLERGIES Allergies/Adverse Reactions: Allergies Allergy/AdvReac Type Severity Reaction Status Date / Time naproxen Allergy Unknown Verified 08/27/18 20:22 Sulfa (Sulfonamide Allergy Unknown Verified 08/27/18 20:22 Antibiotics) gabapentin AdvReac Unknown Verified 08/27/18 20:22 oxycodone AdvReac Itching Verified 08/27/18 20:22 - MEDICATIONS Home Medications: Ambulatory Orders Medication Instructions Recorded Confirmed Metformin HCl 1,000 mg PO BID 10/08/16 08/28/18 Insulin Glargine,Hum.rec.anlog 20 - 25 unit SUBQ BID 07/19/18 08/28/18 [Basaglar Kwikpen U-100] Metoprolol Succinate [Toprol Xl] 50 mg PO BID 07/19/18 08/28/18 Potassium Citrate [Urocit-K] 20 meq PO BID #150 tablet 07/19/18 08/28/18 Sertraline HCl 200 mg PO DAILY 07/19/18 08/28/18 Levothyroxine [Synthroid] 25 mcg PO QDAC 08/28/18 08/28/18 traZODone [Desyrel] 50 mg PO QPM 08/28/18 08/28/18 Methocarbamol [Robaxin] 750 mg PO QPM PRN #15 tablet 08/29/18 oxyCODONE [Roxicodone] 5 mg PO Q4HR PRN #15 tablet 08/29/18 - PHYSICAL EXAM AT DISCHARGE General Appearance: positive: No acute distress, Alert Eyes Bilateral: positive: Normal inspection ENT: positive: ENT inspection nml, Pharynx nml, No signs of dehydration Neck: positive: Nml inspection, Trachea midline Respiratory: positive: Chest non-tender, No respiratory distress, Breath sounds nml Cardiovascular: positive: Regular rate & rhythm, No murmur, No gallop Peripheral Pulses: positive: 2+ Back: positive: CVA tenderness (R) Skin: positive: Warm, Dry Extremities: positive: Non-tender, Full ROM, Nml appearance Neurologic/Psychiatric: positive: Oriented x3, CN's nml (2-12), Motor nml, Sensation nml, Mood/affect nml - LABS Result Diagrams: 08/29/18 06:05 08/29/18 06:05 Other Lab Results: Laboratory Tests 08/27/18 08/27/18 08/27/18 10:12 20:43 20:43 WBC RBC Hgb Hct MCV MCH MCHC RDW Plt Count MPV Neut # (Auto) Lymph # (Auto) Kimball # (Auto) Eos # (Auto) Baso # (Auto) Absolute Nucleated RBC Nucleated RBC % Sodium 128 L Potassium 2.9 L Chloride 84 L Carbon Dioxide 21 Anion Gap 23.0 H BUN 51 H Creatinine 2.5 H Estimated GFR (MDRD) 20 L Glucose 354 H POC Whole Bld Glucose Glycated Hemoglobin 7.2 H Estim Average Glucose 160 H Lactic Acid Calcium 10.2 Phosphorus Magnesium 1.9 Total Bilirubin AST ALT Alkaline Phosphatase Total Protein Albumin Globulin Albumin/Globulin Ratio TSH Cortisol AM Sample Urine Color Urine Clarity Urine pH Ur Specific [place] Urine Protein Urine Glucose (UA) Urine Ketones Urine Occult Blood Urine Nitrite Urine Bilirubin Urine Urobilinogen Ur Leukocyte Esterase Ur Microscopic Review Urine Culture Comments Ur Random Chloride Urine Creatinine Urine Sodium Urine Potassium Ethyl Alcohol 6.3 08/27/18 08/27/18 08/28/18 21:07 21:45 00:09 WBC 10.4 RBC 3.73 L Hgb 12.0 Hct 34.2 L MCV 91.5 MCH 32.2 H MCHC 35.2 RDW 16.3 H Plt Count 323 MPV 8.6 Neut # (Auto) 6.6 Lymph # (Auto) 2.6 Kimball # (Auto) 0.9 Eos # (Auto) 0.2 Baso # (Auto) 0.2 H Absolute Nucleated RBC 0.00 Nucleated RBC % 0.0 Sodium Potassium Chloride Carbon Dioxide Anion Gap BUN Creatinine Estimated GFR (MDRD) Glucose POC Whole Bld Glucose 269 H Glycated Hemoglobin Estim Average Glucose Lactic Acid Calcium Phosphorus Magnesium Total Bilirubin AST ALT Alkaline Phosphatase Total Protein Albumin Globulin Albumin/Globulin Ratio TSH Cortisol AM Sample Urine Color YELLOW Urine Clarity CLEAR Urine pH 5.5 Ur Specific [place] 1.020 Urine Protein TRACE Urine Glucose (UA) >=1000 H Urine Ketones NEGATIVE Urine Occult Blood TRACE-LYSE Urine Nitrite NEGATIVE Urine Bilirubin NEGATIVE Urine Urobilinogen 0.2 (NORMAL) Ur Leukocyte Esterase NEGATIVE Ur Microscopic Review NOT INDICATED Urine Culture Comments NOT INDICATED Ur Random Chloride Urine Creatinine Urine Sodium Urine Potassium Ethyl Alcohol 08/28/18 08/28/18 08/28/18 07:00 07:00 07:00 WBC 7.6 RBC 2.99 L Hgb 9.6 L Hct 27.7 L MCV 92.7 MCH 32.0 H MCHC 34.5 RDW 15.9 H Plt Count 248 MPV 7.8 L Neut # (Auto) 3.9 Lymph # (Auto) 2.7 Kimball # (Auto) 0.7 Eos # (Auto) 0.2 Baso # (Auto) 0.1 Absolute Nucleated RBC 0.00 Nucleated RBC % 0.0 Sodium 137 Potassium 3.0 L Chloride 98 L Carbon Dioxide 28 Anion Gap 11.0 BUN 38 H Creatinine 1.6 H Estimated GFR (MDRD) 33 L Glucose 133 H POC Whole Bld Glucose Glycated Hemoglobin Estim Average Glucose Lactic Acid 1.5 Calcium 9.1 Phosphorus 2.7 Magnesium 1.9 Total Bilirubin 0.6 AST 20 ALT 23 Alkaline Phosphatase 81 Total Protein 6.5 L Albumin 3.6 Globulin 2.9 Albumin/Globulin Ratio 1.2 TSH Cortisol AM Sample Urine Color Urine Clarity Urine pH Ur Specific [place] Urine Protein Urine Glucose (UA) Urine Ketones Urine Occult Blood Urine Nitrite Urine Bilirubin Urine Urobilinogen Ur Leukocyte Esterase Ur Microscopic Review Urine Culture Comments Ur Random Chloride Urine Creatinine Urine Sodium Urine Potassium Ethyl Alcohol 08/28/18 08/28/18 08/28/18 07:00 07:00 07:48 WBC RBC Hgb Hct MCV MCH MCHC RDW Plt Count MPV Neut # (Auto) Lymph # (Auto) [place] # (Auto) Eos # (Auto) Baso # (Auto) Absolute Nucleated RBC Nucleated RBC % Sodium Potassium Chloride Carbon Dioxide Anion Gap BUN Creatinine Estimated GFR (MDRD) Glucose POC Whole Bld Glucose 138 H Glycated Hemoglobin Estim Average Glucose Lactic Acid Calcium Phosphorus Magnesium Total Bilirubin AST ALT Alkaline Phosphatase Total Protein Albumin Globulin Albumin/Globulin Ratio TSH 3.53 Cortisol AM Sample 14.7 Urine Color Urine Clarity Urine pH Ur Specific [place] Urine Protein Urine Glucose (UA) Urine Ketones Urine Occult Blood Urine Nitrite Urine Bilirubin Urine Urobilinogen Ur Leukocyte Esterase Ur Microscopic Review Urine Culture Comments Ur Random Chloride Urine Creatinine Urine Sodium Urine Potassium Ethyl Alcohol 08/28/18 08/28/18 08/28/18 11:30 15:24 17:04 WBC RBC Hgb Hct MCV MCH MCHC RDW Plt Count MPV Neut # (Auto) Lymph # (Auto) [place] # (Auto) Eos # (Auto) Baso # (Auto) Absolute Nucleated RBC Nucleated RBC % Sodium 137 Potassium 3.7 Chloride 102 Carbon Dioxide 26 Anion Gap 9.0 BUN 32 H Creatinine 1.7 H Estimated GFR (MDRD) 31 L Glucose 131 H POC Whole Bld Glucose 145 H 171 H Glycated Hemoglobin Estim Average Glucose Lactic Acid Calcium 9.0 Phosphorus 2.5 Magnesium 1.9 Total Bilirubin AST ALT Alkaline Phosphatase Total Protein Albumin Globulin Albumin/Globulin Ratio TSH Cortisol AM Sample Urine Color Urine Clarity Urine pH Ur Specific [place] Urine Protein Urine Glucose (UA) Urine Ketones Urine Occult Blood Urine Nitrite Urine Bilirubin Urine Urobilinogen Ur Leukocyte Esterase Ur Microscopic Review Urine Culture Comments Ur Random Chloride Urine Creatinine Urine Sodium Urine Potassium Ethyl Alcohol 08/28/18 08/29/18 08/29/18 20:59 06:05 06:05 WBC 5.9 RBC 2.83 L Hgb 9.2 L Hct 27.1 L MCV 95.8 MCH 32.4 H MCHC 33.8 RDW 16.3 H Plt Count 247 MPV 8.6 Neut # (Auto) 2.6 Lymph # (Auto) 2.5 Kimball # (Auto) 0.5 Eos # (Auto) 0.3 Baso # (Auto) 0.0 Absolute Nucleated RBC 0.00 Nucleated RBC % 0.0 Sodium 140 Potassium 3.5 Chloride 104 Carbon Dioxide 28 Anion Gap 8.0 BUN 26 H Creatinine 1.2 H Estimated GFR (MDRD) 46 L Glucose 83 POC Whole Bld Glucose 200 H Glycated Hemoglobin Estim Average Glucose Lactic Acid Calcium 8.6 Phosphorus Magnesium Total Bilirubin AST ALT Alkaline Phosphatase Total Protein Albumin Globulin Albumin/Globulin Ratio TSH Cortisol AM Sample Urine Color Urine Clarity Urine pH Ur Specific [place] Urine Protein Urine Glucose (UA) Urine Ketones Urine Occult Blood Urine Nitrite Urine Bilirubin Urine Urobilinogen Ur Leukocyte Esterase Ur Microscopic Review Urine Culture Comments Ur Random Chloride Urine Creatinine Urine Sodium Urine Potassium Ethyl Alcohol 08/29/18 08/29/18 08/29/18 07:10 07:45 11:59 WBC RBC Hgb Hct MCV MCH MCHC RDW Plt Count MPV Neut # (Auto) Lymph # (Auto) [place] # (Auto) Eos # (Auto) Baso # (Auto) Absolute Nucleated RBC Nucleated RBC % Sodium Potassium Chloride Carbon Dioxide Anion Gap BUN Creatinine Estimated GFR (MDRD) Glucose POC Whole Bld Glucose 86 62 L Glycated Hemoglobin Estim Average Glucose Lactic Acid Calcium Phosphorus Magnesium Total Bilirubin AST ALT Alkaline Phosphatase Total Protein Albumin Globulin Albumin/Globulin Ratio TSH Cortisol AM Sample Urine Color Urine Clarity Urine pH Ur Specific [place] Urine Protein Urine Glucose (UA) Urine Ketones Urine Occult Blood Urine Nitrite Urine Bilirubin Urine Urobilinogen Ur Leukocyte Esterase Ur Microscopic Review Urine Culture Comments Ur Random Chloride < 14 Urine Creatinine 60.8 Urine Sodium < 12.0 Urine Potassium 25.7 Ethyl Alcohol 08/29/18 12:15 WBC RBC Hgb Hct MCV MCH MCHC RDW Plt Count MPV Neut # (Auto) Lymph # (Auto) [place] # (Auto) Eos # (Auto) Baso # (Auto) Absolute Nucleated RBC Nucleated RBC % Sodium Potassium Chloride Carbon Dioxide Anion Gap BUN Creatinine Estimated GFR (MDRD) Glucose POC Whole Bld Glucose 74 Glycated Hemoglobin Estim Average Glucose Lactic Acid Calcium Phosphorus Magnesium Total Bilirubin AST ALT Alkaline Phosphatase Total Protein Albumin Globulin Albumin/Globulin Ratio TSH Cortisol AM Sample Urine Color Urine Clarity Urine pH Ur Specific [place] Urine Protein Urine Glucose (UA) Urine Ketones Urine Occult Blood Urine Nitrite Urine Bilirubin Urine Urobilinogen Ur Leukocyte Esterase Ur Microscopic Review Urine Culture Comments Ur Random Chloride Urine Creatinine Urine Sodium Urine Potassium Ethyl Alcohol - DIAGNOSTIC IMAGING Diagnostic Imaging Results: Final report reviewed Diagnostic Imaging Results Comments: Retroperitoneal ultrasound 08/27/2018: 1. Kidneys appear mildly echogenic. No hydronephrosis seen 2. Bilateral ureteral jets were seen in the bladder - FOLLOW UP Follow Up: Follow-up with Primary care provider within 2-3 days for lab work and referral to drafting teacher - TIME SPENT Time Spent in Discharge (Minutes): 45"
--- NOTE | 2018-08-29 08:31 | Discharge Plan ---
Discharge Plan Disposition: Home, Self Care Condition: Good Prescriptions: oxyCODONE [Roxicodone] 5 mg PO Q4HR PRN #15 tablet PRN Reason: Pain 5 to 7 Methocarbamol [Robaxin] 750 mg PO QPM PRN #15 tablet PRN Reason: Pain Diet: Diabetic Activity Restrictions: No Restrictions Shower Restrictions: No Driving Restrictions: No Additional Instructions or Follow Up instructions: You were admitted to the hospital for decreased kidney function and electrolyte imbalance (low potassium and sodium). You also had a high blood sugar on admission. You were given IV fluids and potassium replacement. Your kidney function has improved. Your blood sugars have improved. A kidney ultrasound was obtained and urine testing was completed. You did not have an urinary tract infection. Recommendation is for you to follow-up with a kidney doctor (thermal technician) for further workup. Please check your blood sugars at home and record the numbers. Follow-up with your primary care provider as previously scheduled. No Smoking: If you smoke, Please STOP! Call for help. Follow-up with: NEVILLE SCHMID MD [Primary Care Provider] -
[2018-08-29] MEDS: FAMOTIDINE 20 MG TABLET PO SCH (08:36)
[2018-08-29] MEDS: LEVOTHYROXINE 25 MCG TABLET PO SCH (08:37)
[2018-08-29] MEDS: SERTRALINE 50 MG TABLET PO SCH (08:37)
[2018-08-29] MEDS: ENOXAPARIN 30 MG/0.3 ML SYRINGE SUBQ SCH (08:38)
[2018-08-29] MEDS: INSULIN GLARGINE 300 UNIT/3 ML PEN SUBQ SCH (08:41)
[2018-08-29] MEDS: METOPROLOL SUCCINATE 50 MG TABLET PO SCH (08:47)
[2018-08-29 12:06] VITALS: BP 119/78
== END 2018-08-29 13:30 | disposition home or self-care (01) ==
LOC: ED 20:15 → OBS 21:52
PROVIDERS: ADMIT Internal Medicine; ATTEND Nurse Practitioner
DX: N17.9 Acute kidney failure, unspecified (principal); E87.6 Hypokalemia; E86.0 Dehydration; I10 Essential (primary) hypertension; E11.65 Type 2 diabetes mellitus with hyperglycemia; Z79.4 Long term (current) use of insulin; E87.1 Hypo-osmolality and hyponatremia; R10.9 Unspecified abdominal pain; E03.9 Hypothyroidism, unspecified; F41.8 Other specified anxiety disorders; F43.10 Post-traumatic stress disorder, unspecified; Z86.74 Personal history of sudden cardiac arrest; Z95.810 Presence of automatic (implantable) cardiac defibrillator
CPT/HCPCS: 36415; 76770; 80048; 80053; 80320; 81003; 82436; 82533; 82570; 83036; 83605; 83735; 84100; 84133; 84300; 84443; 85025; 96365; 96366; 96372; 99283; 99284; A9270; G0378; J1650; J1815; 81001; 87086

== ENCOUNTER 2018-09-09 17:06 | Emergency (ER) | payer OTHER ==
[2018-09-09 18:07] LABS: BASOPHILS # (AUTO) 0.3 10^3/uL (0.0-0.1); BASOPHILS % (AUTO) 2.3 %; EOSINOPHILS # (AUTO) 0.2 10^3/uL (0.0-0.7); EOSINOPHILS % (AUTO) 1.2 %; HGB - HEMOGLOBIN 13.3 g/dL (12.0-16.0); LYMPHOCYTES # (AUTO) 3.2 10^3/uL (1.5-3.5); LYMPHOCYTES % (AUTO) 20.9 %; MEAN CORPUSCULAR HEMOGLOBIN 31.4 pg (27.0-31.0); MEAN CORPUSCULAR HGB CONC 34.1 g/dL (32.0-36.0); MEAN CORPUSCULAR VOLUME 92.1 fL (81.0-99.0); MEAN PLATELET VOLUME 8.6 fL (7.9-10.8); MONOCYTES # (AUTO) 0.7 10^3/uL (0.0-1.0); MONOCYTES % (AUTO) 4.6 %; NEUTROPHILS # (AUTO) 10.8 10^3/uL (1.5-6.6); PLT - PLATELET COUNT 374 10^3/uL (130-450); RED BLOOD COUNT 4.25 10^6/uL (4.20-5.40); RED CELL DISTRIBUTION WIDTH 16.4 % (12.0-15.0); WHITE BLOOD COUNT 15.2 x10^3/uL (4.8-10.8)
[2018-09-09 18:26] LABS: ALBUMIN 4.9 g/dL (3.2-5.5); ALBUMIN/GLOBULIN RATIO 1.3 (1.0-2.2); BILIRUBIN,TOTAL 1.2 mg/dL (0.2-1.0); CALCIUM 10.3 mg/dL (8.5-10.3); CREATININE 1.6 mg/dL (0.4-1.0); TOTAL PROTEIN 8.8 g/dL (6.7-8.2)
--- NOTE | 2018-09-09 19:41 | XRAY Report ---
Reason: chest pain Procedure Date: 09/09/2018 Accession Number: [id number] / [id number] Procedure: XR - Chest 1 View X-Ray CPT Code: 50006 FULL RESULT: EXAM: CHEST RADIOGRAPHY EXAM DATE: 09/09/2018 07:30 PM. CLINICAL HISTORY: Chest pain. COMPARISON: CHEST 2 VIEW PA/LAT 04/06/2017 7:07 PM. TECHNIQUE: 1 view. FINDINGS: Lungs/Pleura: No focal opacities evident. No pleural effusion. No pneumothorax. Mediastinum: Within exam limitations, the cardiomediastinal contour is normal. Other: Mild S-shaped scoliosis. No dual-lead left ICD. IMPRESSION: New dual-lead left ICD, otherwise unremarkable single view chest. [facility]
--- NOTE | 2018-09-09 19:54 | ED Physician Documentation ---
PD HPI CHEST PAIN - Stated complaint Stated Complaint: CP/VOMITING - Chief complaint Chief Complaint: Cardiac - History obtained from History obtained from: Patient - History of Present Illness Timing - onset: How many days ago (2) Timing - onset during: Light activity. No: Exertion Timing - duration: Days (2) Timing - details: Gradual onset, Intermittant Quality: Pressure, Tightness Location: Substernal, Left chest Radiation: No: Jaw, Neck Improved by: No: Rest Worsened by: No: Exertion, Inspiration, Palpation Associated symptoms: No: Shortness of air, Nausea, Feeling faint / dizzy, Cough Similar symptoms before: No diagnosis (had some chest pressure and discomfort at times prior to her cardiac arrest/vfib episode last year. No prior ACS/RI.) Review of Systems Constitutional: denies: Fever, Chills, Myalgias Nose: denies: Rhinorrhea / runny nose, Congestion Throat: denies: Sore throat Cardiac: reports: Chest pain / pressure. 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 Cardiovascular: Pacemaker, AICD - Present Medications Home Medications: Ambulatory Orders Medication Instructions Recorded Confirmed Metformin HCl 1,000 mg PO BID 10/08/16 08/28/18 Insulin Glargine,Hum.rec.anlog 20 - 25 unit SUBQ BID 07/19/18 08/28/18 [Basaglar Kwikpen U-100] Metoprolol Succinate [Toprol Xl] 50 mg PO BID 07/19/18 08/28/18 Potassium Citrate [Urocit-K] 20 meq PO BID #150 tablet 07/19/18 08/28/18 Sertraline HCl 200 mg PO DAILY 07/19/18 08/28/18 Levothyroxine [Synthroid] 25 mcg PO QDAC 08/28/18 08/28/18 traZODone [Desyrel] 50 mg PO QPM 08/28/18 08/28/18 Methocarbamol [Robaxin] 750 mg PO QPM PRN #15 tablet 08/29/18 oxyCODONE [Roxicodone] 5 mg PO Q4HR PRN #15 tablet 08/29/18 Famotidine 20 mg PO DAILY #20 tablet 09/09/18 Potassium Bicarbonate 25 meq PO DAILY #15 tablet 09/09/18 [K-Effervescent] Promethazine [Phenergan] 25 mg PO Q6H PRN #10 tab 09/09/18 - Allergies Allergies/Adverse Reactions: Allergies Allergy/AdvReac Type Severity Reaction Status Date / Time naproxen Allergy Unknown Verified 09/09/18 17:24 Sulfa (Sulfonamide Allergy Hives Verified 09/09/18 17:25 Antibiotics) gabapentin AdvReac Unknown Verified 09/09/18 17:24 oxycodone AdvReac Itching Verified 09/09/18 17:24 - Social History Does the pt smoke?: No Smoking Status: Former smoker Does the pt drink ETOH?: Yes Does the pt have substance abuse?: No - Immunizations Immunizations are current?: Yes - POLST Patient has POLST: No POLST Status: Full Code PD ED PE NORMAL - Vitals Vital signs reviewed: Yes - General General: Alert and oriented X 3, No acute distress, Well developed/nourished - HEENT HEENT: Moist mucous membranes, Pharynx benign - Neck Neck: Supple, no meningeal sign, No adenopathy - Cardiac Cardiac: RRR, No murmur - Respiratory Respiratory: Clear bilaterally, Other (chestwall without redness nor tenderness at AICD site. ) - Abdomen Abdomen: Normal bowel sounds, Soft, Non tender, Non distended, No organomegaly - Derm Derm: Normal color, Warm and dry, No rash - Extremities Extremities: No deformity, No tenderness to palpate, No edema, No calf tenderness / cord - Neuro Neuro: Alert and oriented X 3, No motor deficit, Normal speech Results - Vitals Vitals: Vital Signs - 24 hr 09/09/18 09/09/18 09/09/18 17:18 19:43 20:52 Temperature 36.3 C L Heart Rate 72 77 84 Respiratory 16 16 16 Rate Blood Pressure 144/85 H 124/75 149/86 H O2 Saturation 98 98 98 Oxygen O2 Source Room air - EKG (time done) 17:18 Rate: Rate (enter#) (74) Rhythm: NSR [place]: Normal Intervals: Normal [place] QRS: Normal Ischemia: Normal ST segments, Other (some artifact with movement). No: ST elevation c/w ischemia, ST depression - Labs Labs: Laboratory Tests 09/09/18 09/09/18 09/09/18 17:58 17:58 17:58 WBC 15.2 H RBC 4.25 Hgb 13.3 Hct 39.1 MCV 92.1 MCH 31.4 H MCHC 34.1 RDW 16.4 H Plt Count 374 MPV 8.6 Neut # (Auto) 10.8 H Lymph # (Auto) 3.2 [place] # (Auto) 0.7 Eos # (Auto) 0.2 Baso # (Auto) 0.3 H Absolute Nucleated RBC 0.02 Nucleated RBC % 0.1 Platelet Estimate NORMAL (130-450,000) Platelet Morphology NORMAL APPEARANCE RBC Morph Micro Appear NORMAL APPEARANCE Sodium 133 L Potassium 2.8 L Chloride 89 L Carbon Dioxide 27 Anion Gap 17.0 H BUN 38 H Creatinine 1.6 H Estimated GFR (MDRD) 33 L Glucose 135 H Calcium 10.3 Total Bilirubin 1.2 H AST 29 ALT 23 Alkaline Phosphatase 115 Troponin I < 0.04 Total Protein 8.8 H Albumin 4.9 Globulin 3.9 Albumin/Globulin Ratio 1.3 Lipase 35 Urine Color Urine Clarity Urine pH Ur Specific [place] Urine Protein Urine Glucose (UA) Urine Ketones Urine Occult Blood Urine Nitrite Urine Bilirubin Urine Urobilinogen Ur Leukocyte Esterase Urine RBC Urine WBC Ur Squamous Epith Cells Urine Bacteria Ur Microscopic Review Urine Culture Comments 09/09/18 19:10 WBC RBC Hgb Hct MCV MCH MCHC RDW Plt Count MPV Neut # (Auto) Lymph # (Auto) [place] # (Auto) Eos # (Auto) Baso # (Auto) Absolute Nucleated RBC Nucleated RBC % Platelet Estimate Platelet Morphology RBC Morph Micro Appear Sodium Potassium Chloride Carbon Dioxide Anion Gap BUN Creatinine Estimated GFR (MDRD) Glucose Calcium Total Bilirubin AST ALT Alkaline Phosphatase Troponin I Total Protein Albumin Globulin Albumin/Globulin Ratio Lipase Urine Color YELLOW Urine Clarity CLEAR Urine pH 5.5 Ur Specific [place] 1.020 Urine Protein NEGATIVE Urine Glucose (UA) NEGATIVE Urine Ketones NEGATIVE Urine Occult Blood NEGATIVE Urine Nitrite NEGATIVE Urine Bilirubin NEGATIVE Urine Urobilinogen 0.2 (NORMAL) Ur Leukocyte Esterase SMALL H Urine RBC 0-5 Urine WBC 11-25 H Ur Squamous Epith Cells MANY Squamous H Urine Bacteria Few Ur Microscopic Review INDICATED Urine Culture Comments NOT INDICATED - Rads (name of study) chest xray Radiology: Prelim report reviewed (no acute process seen. ), See rad report PD MEDICAL DECISION MAKING - ED course Complexity details: re-evaluated patient (Labs chest x-ray and EKG are good. We are not able to interrogate a [place] AICD. She does have the apparatus at home. She is not having symptoms suggestive of a threatening arrhythmia. We can discharge her here and have her download the AICD information with an interrogation this evening when she gets home. They can contact us if a significant abnormality.), considered differential (she did not have AICD fire. Had chest pressure feeling intermittently. Consider possible arrhythmia but unlikely to be vfib or such. Has had normal heart cath with her vfib episode last year. Doubt ACS. Has normal CXR, ECG, Trop. Potassium low at 2.8 but not low enough for admission criteria. PERC negative so no suspicion for PE. ), d/w patient Departure - Departure Disposition: Home, Self Care Clinical Impression: Chest discomfort, Nausea, Hypokalemia Condition: Stable Record reviewed to determine appropriate education?: Yes Instructions: ED Chest Pain Atypical Unkn Cause Follow-Up: NEVILLE SCHMID MD [Primary Care Provider] - Prescriptions: Famotidine 20 mg PO DAILY #20 tablet Potassium Bicarbonate [K-Effervescent] 25 meq PO DAILY #15 tablet Promethazine [Phenergan] 25 mg PO Q6H PRN #10 tab PRN Reason: Nausea / Vomiting Comments: Your heart rhythm is normal. Your troponin is normal which shows no signs of heart attack or muscle injury. Your chest x-ray is clear. We are unable to interrogate the [place] AICD here. When you get home call up and have them interrogate your pacer defibrillator to ensure there are no irregular rhythms through the day today. Otherwise there may be some inflammation around the muscles or lung causing the pain that you are having with breathing. It may also be some reflux or heartburn to given your nausea. Use some promethazine if needed for nausea. 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 Add Tylenol or ibuprofen if needed for pains. Recheck if not better over the next couple of days. Discharge Date/Time: 09/09/18 21:07
[2018-09-09 20:09] LABS: BILIRUBIN,URINE NEGATIVE (NEGATIVE); GLUCOSE, URINE (UA) NEGATIVE (NEGATIVE); KETONES,URINE (UA) NEGATIVE (NEGATIVE); LEUKOCYTE ESTERASE, URINE SMALL (NEGATIVE); NITRITE,URINE NEGATIVE (NEGATIVE); OCCULT BLOOD,URINE NEGATIVE (NEGATIVE); PH,URINE 5.5 PH (5.0-7.5); PROTEIN,URINE NEGATIVE (NEGATIVE); UROBILINOGEN,URINE 0.2 (NORMAL) E.U./dL (NORMAL)
[2018-09-09 20:21] LABS: CLARITY,URINE CLEAR (CLEAR)
[2018-09-09 20:28] LABS: BACTERIA,URINE Few /HPF (None Seen); RBC,URINE 0-5 /HPF (0-5); SQUAMOUS EPITHELIAL CELL,UR MANY Squamous (<= Few)
[2018-09-09] MEDS ORDERED: PROMETHAZINE 25 MG TABLET PO STA (20:32)
[2018-09-09] MEDS ORDERED: POTASSIUM BICARB 25 MEQ TABLET PO STA (20:32)
[2018-09-09] MEDS ORDERED: IBUPROFEN 600 MG TABLET PO STA (20:32)
[2018-09-09] MEDS ORDERED: MAG HYDROX/AL HYDROX/SIMETH 30 ML UDC PO STA (20:33)
[2018-09-09] MEDS ORDERED: FAMOTIDINE 20 MG TABLET PO STA (20:33)
[2018-09-09 20:53] VITALS: BP 149/86
[2018-09-09 21:25] LABS: PLATELET ESTIMATE, MANUAL NORMAL (130-450,000) (NORMAL); PLATELET MORPHOLOGY NORMAL APPEARANCE (NORMAL); RBC MORPHOLOGY (MULTIPLE) NORMAL APPEARANCE (NORMAL)
== END 2018-09-09 21:07 | disposition home or self-care (01) ==
LOC: ED 17:06
DX: R07.89 Other chest pain (principal); R11.0 Nausea; E87.6 Hypokalemia; I45.81 Long QT syndrome; I10 Essential (primary) hypertension; E78.00 Pure hypercholesterolemia, unspecified; E11.9 Type 2 diabetes mellitus without complications; Z79.4 Long term (current) use of insulin; Z95.810 Presence of automatic (implantable) cardiac defibrillator; Z87.891 Personal history of nicotine dependence
CPT/HCPCS: 36415; 71045; 80053; 81001; 83690; 84484; 85025; 93005; 99283; A9270; Q0169; 81003; 87086

== ENCOUNTER 2018-12-12 19:05 | Emergency (ER) | payer OTHER ==
[2018-12-12] MEDS ORDERED: SODIUM CHLORIDE 0.9% 1,000 ML IV ONE (19:18)
[2018-12-12] MEDS ORDERED: INSULIN REGULAR HUMAN 100 UNIT/1 ML 10 ML MDV IVP STA (19:36)
[2018-12-12] MEDS ORDERED: INSULIN GLARGINE 300 UNIT/3 ML PEN SUBQ STA (19:36)
--- NOTE | 2018-12-12 19:38 | ED Physician Documentation ---
History of Present Illness - Stated complaint Stated Complaint: chest pain/ elevated sugar - Chief complaint Chief Complaint: Cardiac - History obtained from History obtained from: Patient - History of Present Illness Timing: Yesterday (58-year-old woman with history of cardiac arrest, AICD in place. She is also diabetic. Her usual regimen is 1000 mg of metformin twice a day and Lantus 25 units twice a day. She is away from home did not bring her Lantus with her, her last dose was 48 hours ago. Yesterday she went to her marketing support manager and they had labs done. They noted her blood sugar to be 536 with a bicarb of 30 and worried that she might be in DKA referred her here for further evaluation and treatment. She denies nausea or vomiting. She did have AICD shocks, 2x5 days ago, she has seen her marketing support manager since then and this has been addressed.) Review of Systems Constitutional: reports: Fatigue. 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 Cardiovascular: Pacemaker, AICD - Present Medications Home Medications: Ambulatory Orders Medication Instructions Recorded Confirmed Metformin HCl 1,000 mg PO BID 10/08/16 08/28/18 Insulin Glargine,Hum.rec.anlog 20 - 25 unit SUBQ BID 07/19/18 08/28/18 [Basaglar Kwikpen U-100] Metoprolol Succinate [Toprol Xl] 50 mg PO BID 07/19/18 08/28/18 Potassium Citrate [Urocit-K] 20 meq PO BID #150 tablet 07/19/18 08/28/18 Sertraline HCl 200 mg PO DAILY 07/19/18 08/28/18 Levothyroxine [Synthroid] 25 mcg PO QDAC 08/28/18 08/28/18 traZODone [Desyrel] 50 mg PO QPM 08/28/18 08/28/18 Methocarbamol [Robaxin] 750 mg PO QPM PRN #15 tablet 08/29/18 oxyCODONE [Roxicodone] 5 mg PO Q4HR PRN #15 tablet 08/29/18 Famotidine 20 mg PO DAILY #20 tablet 09/09/18 Potassium Bicarbonate 25 meq PO DAILY #15 tablet 09/09/18 [K-Effervescent] Promethazine [Phenergan] 25 mg PO Q6H PRN #10 tab 09/09/18 Insulin Glargine [Lantus Solostar] 25 unit SQ BID #1 pen 12/12/18 Potassium Citrate [Urocit-K] 15 meq PO QID #20 tablet.er 12/12/18 - Allergies Allergies/Adverse Reactions: Allergies Allergy/AdvReac Type Severity Reaction Status Date / Time naproxen Allergy Unknown Verified 12/12/18 19:13 Sulfa (Sulfonamide Allergy Hives Verified 12/12/18 19:13 Antibiotics) gabapentin AdvReac Unknown Verified 12/12/18 19:13 oxycodone AdvReac Itching Verified 12/12/18 19:13 - Social History Does the pt smoke?: No Smoking Status: Former smoker Does the pt drink ETOH?: Yes Does the pt have substance abuse?: No - Immunizations Immunizations are current?: Yes - POLST Patient has POLST: No POLST Status: Full Code PD ED PE NORMAL - Vitals Vital signs reviewed: Yes - General General: Alert and oriented X 3, No acute distress - Neck Neck: Supple, no meningeal sign, No bony TTP - Cardiac Cardiac: RRR, No murmur - Respiratory Respiratory: No respiratory distress - Abdomen Abdomen: Normal bowel sounds, Soft, Non tender - Derm Derm: Normal color, Warm and dry - Extremities Extremities: No edema, No calf tenderness / cord - Neuro Neuro: Alert and oriented X 3, Normal speech Results - Vitals Vitals: Vital Signs - 24 hr 12/12/18 12/12/18 12/12/18 19:09 20:05 20:22 Temperature 36.9 C Heart Rate 79 81 80 Respiratory 20 16 18 Rate Blood Pressure 158/74 H 144/74 H 147/80 H O2 Saturation 96 97 96 12/12/18 20:40 Temperature Heart Rate 79 Respiratory 16 Rate Blood Pressure 147/80 H O2 Saturation 98 Oxygen O2 Source Room air - Labs Labs: Laboratory Tests 12/12/18 12/12/18 12/12/18 19:22 19:30 19:30 WBC 7.8 RBC 3.89 L Hgb 12.2 Hct 35.7 L MCV 91.8 MCH 31.4 H MCHC 34.2 RDW 13.0 Plt Count 195 MPV 11.0 H Neut # (Auto) 4.6 Lymph # (Auto) 2.4 [place] # (Auto) 0.6 Eos # (Auto) 0.2 Baso # (Auto) 0.0 Absolute Nucleated RBC 0.00 Nucleated RBC % 0.0 VBG pH VBG pCO2 VBG pO2 VBG HCO3 VBG Total CO2 VBG O2 Saturation VBG Base Excess Sodium 132 L Potassium 2.7 L Chloride 90 L Carbon Dioxide 21 Anion Gap 21.0 H BUN 18 Creatinine 1.0 Estimated GFR (MDRD) 57 L Glucose 470 H POC Whole Bld Glucose 493 H Calcium 8.9 Total Bilirubin 0.5 AST 39 ALT 55 Alkaline Phosphatase 111 Total Protein 7.2 Albumin 4.0 Globulin 3.2 Albumin/Globulin Ratio 1.3 Lipase 76 H Serum Ketones NEGATIVE 12/12/18 12/12/18 19:30 20:29 WBC RBC Hgb Hct MCV MCH MCHC RDW Plt Count MPV Neut # (Auto) Lymph # (Auto) [place] # (Auto) Eos # (Auto) Baso # (Auto) Absolute Nucleated RBC Nucleated RBC % VBG pH 7.411 H VBG pCO2 36.5 L VBG pO2 67.0 H VBG HCO3 22.7 L VBG Total CO2 23.8 L VBG O2 Saturation 92.7 H VBG Base Excess -1.5 Sodium Potassium Chloride Carbon Dioxide Anion Gap BUN Creatinine Estimated GFR (MDRD) Glucose POC Whole Bld Glucose 362 H Calcium Total Bilirubin AST ALT Alkaline Phosphatase Total Protein Albumin Globulin Albumin/Globulin Ratio Lipase Serum Ketones PD MEDICAL DECISION MAKING - ED course ED course: This is a 58-year-old woman with uncontrolled type 2 diabetes. Also hypokalemia. There is no evidence of DKA. She was administered IV fluids and insulin with improvement in her blood sugars. Also IV and oral potassium. The cause of her decompensation is clear. [place] She was administered a dose of Lantus here and it was refilled. 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 You need to have your potassium rechecked early next week, talk with your primary care physician about this. It was 2.7 today. You have had low potassiums in the past frequently.
[2018-12-12 19:49] LABS: BASOPHILS % (AUTO) 0.5 %; EOSINOPHILS # (AUTO) 0.2 10^3/uL (0.0-0.7); EOSINOPHILS % (AUTO) 2.6 %; HGB - HEMOGLOBIN 12.2 g/dL (12.0-16.0); LYMPHOCYTES # (AUTO) 2.4 10^3/uL (1.5-3.5); MEAN CORPUSCULAR HEMOGLOBIN 31.4 pg (27.0-31.0); MEAN CORPUSCULAR HGB CONC 34.2 g/dL (32.0-36.0); MEAN CORPUSCULAR VOLUME 91.8 fL (81.0-99.0); MONOCYTES # (AUTO) 0.6 10^3/uL (0.0-1.0); MONOCYTES % (AUTO) 8.2 %; NEUTROPHILS # (AUTO) 4.6 10^3/uL (1.5-6.6); NEUTROPHILS % (AUTO) 58.3 %; PLT - PLATELET COUNT 195 10^3/uL (130-450); RED BLOOD COUNT 3.89 10^6/uL (4.20-5.40); WHITE BLOOD COUNT 7.8 x10^3/uL (4.8-10.8)
[2018-12-12 19:54] LABS: VBG PCO2 36.5 mmHg (41-51); VBG PH 7.411 (7.31-7.41)
[2018-12-12 19:55] LABS: VBG BASE EXCESS -1.5 mmol/L (-2 - +2); VBG TOTAL CO2 23.8 mmol/L (24-29)
[2018-12-12] MEDS ORDERED: MORPHINE 2 MG/ML CARPUJECT IVP STA (20:00)
[2018-12-12 20:05] LABS: ALBUMIN/GLOBULIN RATIO 1.3 (1.0-2.2); ALKALINE PHOSPHATASE 111 IU/L (42-121); ALT ALANINE AMINOTRANSFERASE 55 IU/L (10-60); AST ASPARTATE AMINOTRANSFERASE 39 IU/L (10-42); BILIRUBIN,TOTAL 0.5 mg/dL (0.2-1.0); BUN - BLOOD UREA NITROGEN 18 mg/dL (6-20); CALCIUM 8.9 mg/dL (8.5-10.3); CARBON DIOXIDE - CO2 21 mmol/L (21-32); CHLORIDE 90 mmol/L (101-111); GFR - MDRD 57 (>89); GLUCOSE 470 mg/dL (70-100); LIPASE 76 U/L (22-51); SODIUM 132 mmol/L (135-145); TOTAL PROTEIN 7.2 g/dL (6.7-8.2)
[2018-12-12] MEDS ORDERED: POTASSIUM CHLOR 10 MEQ/100 ML 10 MEQ/100 ML BAG IV ONE (20:15)
[2018-12-12] MEDS ORDERED: POTASSIUM CHLORIDE 20 MEQ TABLET PO STA (20:15)
[2018-12-12 20:21] LABS: KETONES, SERUM (ACETEST) NEGATIVE (NEGATIVE)
[2018-12-12 21:29] VITALS: BP 140/71
[2018-12-12] MEDS ORDERED: HYDROcod/ACET 5/325 Prepack 4 PO STA (21:42)
== END 2018-12-12 22:10 | disposition home or self-care (01) ==
LOC: ED 19:05
DX: E11.65 Type 2 diabetes mellitus with hyperglycemia (principal); E87.6 Hypokalemia; Z79.4 Long term (current) use of insulin; T38.3X6A Underdosing of insulin and oral hypoglycemic [antidiabetic] drugs, initial encounter; Z91.128 Patient's intentional underdosing of medication regimen for other reason; I10 Essential (primary) hypertension; Z95.810 Presence of automatic (implantable) cardiac defibrillator; Z87.891 Personal history of nicotine dependence
CPT/HCPCS: 36415; 80053; 82009; 82803; 83690; 85025; 93005; 96361; 96365; 96375; 99284; A9270; J1815